=== PATIENT | male | born 1980 | race African-American/Black ===

== ENCOUNTER → 2016-08-25 | Emergency (ER) | payer OTHER ==
[~2016-08-25] MED LIST: METOCLOPRAMIDE HCL INJECTION 10 MG/2 ML VIAL IVPB ONE; METOCLOPRAMIDE HCL INJECTION 10 MG/2 ML VIAL ONE; SODIUM CHLORIDE 1,000 ML IV STA; morphine CARPU-JECT 2 MG/1 ML DISP.SYRIN IVPUSH ONE; morphine CARPU-JECT 4 MG/1 ML DISP.SYRIN ONE
[2016-08-25 11:40] VITALS: BP 128/76; PULSE 86; TEMP 98.2; BMI 24.3
[2016-08-25 12:39] LABS: EOSINOPHIL 1.4 % (0-4.5); MCH 32.3 pg (25.7-33.7); MEAN CELL VOLUME 97.9 fl (80-96); NEUTROPHILS 72.3 % (42.8-82.8); PLATELET COUNT 444 K/MM3 (134-434); RDW 15.2 % (11.9-15.9); WHITE BLOOD COUNT 7.5 K/mm3 (4.0-10.0)
[2016-08-25 13:05] LABS: ALBUMIN 3.9 g/dl (3.4-5.0); ANION GAP 8 (8-16); BILIRUBIN,TOTAL 0.7 mg/dL (0.2-1.0); CALCIUM 9.2 mg/dL (8.5-10.1); CO2 26 mmol/L (21-32); CREATININE 0.8 mg/dL (0.7-1.3); GLUCOSE,RANDOM 95 mg/dL (74-106); SGOT/AST 17 U/L (15-37); SGPT/ALT 60 U/L (12-78)
[2016-08-25 13:06] LABS: ALK PHOS 125 U/L (45-117)
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
[2016-08-25 13:59] LABS: URINE APPEARANCE CLEAR; URINE BILIRUBIN NEGATIVE (NEGATIVE); URINE BLOOD NEGATIVE (NEGATIVE); URINE COLOR YELLOW; URINE GLUCOSE (UA) NEGATIVE (NEGATIVE); URINE KETONE NEGATIVE (NEGATIVE); URINE LEUK ESTERASE NEGATIVE (NEGATIVE); URINE NITRITE NEGATIVE (NEGATIVE); URINE PROTEIN NEGATIVE (NEGATIVE); URINE UROBILINOGEN 4.0 E.U/dl E.U./dl (0.2-1.0)
[2016-08-25 15:13] LABS: URINE MARIJUANA THC POSITIVE ng/ml (CUTOFF=50)
== END | disposition home or self-care (01) ==
LOC: JER 11:17
PROC: 3E033GC Introduction of Other Therapeutic Substance into Peripheral Vein, Percutaneous Approach (ICD-10-PCS; principal; 2016-08-25)
PROC: 3E033NZ Introduction of Analgesics, Hypnotics, Sedatives into Peripheral Vein, Percutaneous Approach (ICD-10-PCS; 2016-08-25)
DX: R11.2 Nausea with vomiting, unspecified (principal); J45.909 Unspecified asthma, uncomplicated; F17.210 Nicotine dependence, cigarettes, uncomplicated; F12.10 Cannabis abuse, uncomplicated
CPT/HCPCS: 36415; 80053; 80307; 81003; 83605; 83690; 83735; 85025; 87040; 87086; 99284-25

== ENCOUNTER 2016-12-06 21:14 | Emergency (ER) | payer OTHER ==
[2016-12-06 21:28] VITALS: BMI 23.6
[2016-12-06] MEDS ORDERED: SODIUM CHLORIDE 0.9% 500 ML INFUS.BAG IV ONE (21:33)
[2016-12-06] MEDS ORDERED: ONDANSETRON 4 MG/2 ML VIAL IVPUSH ONE ×2 (21:33→21:51)
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
[2016-12-06] MEDS ORDERED: ONDANSETRON 4 MG/2 ML VIAL ONE (21:39)
[2016-12-06] MEDS ORDERED: FAMOTIDINE 20 MG/50 ML IVPB 50 ML IVPB ONE ×2 (21:51→21:56)
[2016-12-06] MEDS ORDERED: morphine CARPU-JECT 4 MG/1 ML DISP.SYRIN IVPUSH ONE (21:51)
[2016-12-06] MEDS ORDERED: morphine CARPU-JECT 4 MG/1 ML DISP.SYRIN ONE (21:55)
[2016-12-06 22:31] LABS: BASOPHIL 0.3 % (0-2.0); MCH 29.4 pg (25.7-33.7); MCHC 32.5 g/dl (32.0-35.9); MEAN CELL VOLUME 90.5 fl (80-96); MEAN PLT VOLUME 9.2 fl (7.5-11.1); NEUTROPHILS 86.1 % (42.8-82.8); PLATELET COUNT 229 K/MM3 (134-434); RDW 14.6 % (11.9-15.9); WHITE BLOOD COUNT 9.8 K/mm3 (4.0-10.0)
[2016-12-06 22:43] LABS: INR 1.19 (0.82-1.09); PROTHROMBIN TIME (PATIENT) 13.1 SEC (9.98-11.88)
[2016-12-06 23:00] LABS: ALBUMIN 4.2 g/dl (3.4-5.0); ALK PHOS 74 U/L (45-117); ANION GAP 8 (8-16); BILIRUBIN,TOTAL 0.8 mg/dL (0.2-1.0); CALCIUM 9.1 mg/dL (8.5-10.1); CO2 27 mmol/L (21-32); COCKROFT - GAULT 102.81; GLUCOSE,RANDOM 92 mg/dL (74-106); MAGNESIUM 1.7 mg/dL (1.8-2.4); PHOSPHOROUS 2.9 mg/dL (2.5-4.9); SGOT/AST 18 U/L (15-37); SGPT/ALT 21 U/L (12-78); TOT PROT 7.8 g/dl (6.4-8.2)
[2016-12-07] MEDS ORDERED: ONDANSETRON 4 MG/2 ML VIAL IVPUSH ONE (01:56)
[2016-12-07] MEDS ORDERED: ONDANSETRON 4 MG/2 ML VIAL ONE (02:23)
[2016-12-07 02:39] VITALS: BP 126/87; PULSE 80; TEMP 98.3
== END 2016-12-07 02:29 | disposition home or self-care (01) ==
LOC: JER 21:14
PROC: 3E033NZ Introduction of Analgesics, Hypnotics, Sedatives into Peripheral Vein, Percutaneous Approach (ICD-10-PCS; principal; 2016-12-06)
PROC: 3E033GC Introduction of Other Therapeutic Substance into Peripheral Vein, Percutaneous Approach (ICD-10-PCS; 2016-12-06)
DX: R10.30 Lower abdominal pain, unspecified (principal)
CPT/HCPCS: 36415; 74177-TC; 80053; 83605; 83690; 83735; 84100; 85025; 85610; 86850; 86900; 86901; 96374; 96375; 99283-25

== ENCOUNTER 2016-12-08 13:11 | Emergency (ER) | payer OTHER ==
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
[2016-12-08] MEDS ORDERED: HYDROmorphone HCL CARPU-JECT 2 MG/1 ML DISP.SYRIN IVPUSH ONE (13:29)
[2016-12-08] MEDS ORDERED: SODIUM CHLORIDE 2,000 ML IV STA (13:29)
[2016-12-08] MEDS ORDERED: ONDANSETRON 4 MG/2 ML VIAL IVPUSH ONE (13:29)
[2016-12-08 13:36] VITALS: BMI 22.8
[2016-12-08] MEDS ORDERED: HYDROmorphone HCL CARPU-JECT 2 MG/1 ML DISP.SYRIN ONE (13:40)
[2016-12-08] MEDS ORDERED: ONDANSETRON 4 MG/2 ML VIAL ONE (13:41)
[2016-12-08 14:25] LABS: BASOPHIL 0.4 % (0-2.0); EOSINOPHIL 1.4 % (0-4.5); MCH 29.2 pg (25.7-33.7); MCHC 32.3 g/dl (32.0-35.9); MEAN CELL VOLUME 90.5 fl (80-96); MEAN PLT VOLUME 8.7 fl (7.5-11.1); NEUTROPHILS 75.6 % (42.8-82.8); PLATELET COUNT 209 K/MM3 (134-434); RDW 14.3 % (11.9-15.9)
[2016-12-08 14:36] LABS: INR 1.2 (0.82-1.09); PROTHROMBIN TIME (PATIENT) 13.2 SEC (9.98-11.88)
[2016-12-08 14:53] LABS: ALBUMIN 4.1 g/dl (3.4-5.0); ALK PHOS 63 U/L (45-117); ANION GAP 10 (8-16); BILIRUBIN,TOTAL 0.8 mg/dL (0.2-1.0); CALCIUM 8.6 mg/dL (8.5-10.1); CO2 26 mmol/L (21-32); COCKROFT - GAULT 110.66; CREATININE 0.9 mg/dL (0.7-1.3); GLUCOSE,RANDOM 81 mg/dL (74-106); SGOT/AST 20 U/L (15-37); SGPT/ALT 19 U/L (12-78); TOT PROT 7.2 g/dl (6.4-8.2)
[2016-12-08 15:49] LABS: URINE APPEARANCE CLEAR; URINE BILIRUBIN NEGATIVE (NEGATIVE); URINE BLOOD NEGATIVE (NEGATIVE); URINE COLOR STRAW; URINE GLUCOSE (UA) NEGATIVE (NEGATIVE); URINE KETONE 1+ (NEGATIVE); URINE LEUK ESTERASE NEGATIVE (NEGATIVE); URINE NITRITE NEGATIVE (NEGATIVE); URINE PROTEIN NEGATIVE (NEGATIVE); URINE UROBILINOGEN NEGATIVE E.U./dl (0.2-1.0)
[2016-12-08 15:54] LABS: URINE MARIJUANA THC POSITIVE ng/ml (CUTOFF=50)
[2016-12-08 18:06] VITALS: BP 146/87; PULSE 62; TEMP 98.2
== END 2016-12-08 18:02 | disposition home or self-care (01) ==
LOC: JER 13:11
PROC: 3E033NZ Introduction of Analgesics, Hypnotics, Sedatives into Peripheral Vein, Percutaneous Approach (ICD-10-PCS; principal; 2016-12-08)
PROC: 3E033GC Introduction of Other Therapeutic Substance into Peripheral Vein, Percutaneous Approach (ICD-10-PCS; 2016-12-08)
DX: R10.30 Lower abdominal pain, unspecified (principal); Z87.828 Personal history of other (healed) physical injury and trauma
CPT/HCPCS: 36415; 76705-TC; 80053; 80307; 81003; 83690; 85025; 85610; 99282-25

== ENCOUNTER 2017-04-04 22:43 | Emergency (ER) | payer OTHER ==
[2017-04-04 23:06] VITALS: BP 142/119; PULSE 86; TEMP 98.9; BMI 24.3
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
[2017-04-04] MEDS ORDERED: SODIUM CHLORIDE 1,000 ML IV STA (23:35)
[2017-04-04] MEDS ORDERED: ONDANSETRON 4 MG/2 ML VIAL IVPUSH STA (23:35)
[2017-04-04] MEDS ORDERED: morphine CARPU-JECT 2 MG/1 ML DISP.SYRIN IVPUSH ONE (23:35)
[2017-04-04] MEDS ORDERED: PANTOPRAZOLE SODIUM 40 MG in SODIUM CHLORIDE 100 ML IVPB ONE (23:35)
[2017-04-04] MEDS ORDERED: PANTOPRAZOLE SODIUM 100 ML IVPB ONE (23:42)
[2017-04-04] MEDS ORDERED: morphine CARPU-JECT 4 MG/1 ML DISP.SYRIN ONE (23:42)
[2017-04-04] MEDS ORDERED: ONDANSETRON 4 MG/2 ML VIAL ONE (23:42)
[2017-04-04 23:45] LABS: BASOPHIL 0.4 % (0-2.0); EOSINOPHIL 0.1 % (0-4.5); MCH 30.7 pg (25.7-33.7); MCHC 32.8 g/dl (32.0-35.9); MEAN CELL VOLUME 93.4 fl (80-96); MEAN PLT VOLUME 8.8 fl (7.5-11.1); PLATELET COUNT 211 K/MM3 (134-434); WHITE BLOOD COUNT 8.5 K/mm3 (4.0-10.0)
[2017-04-05 00:13] LABS: ALBUMIN 4.2 g/dl (3.4-5.0); AMYLASE 45 U/L (25-115); ANION GAP 12 (8-16); BILIRUBIN,TOTAL 1.1 mg/dL (0.2-1.0); CALCIUM 9.3 mg/dL (8.5-10.1); CO2 25 mmol/L (21-32); GLUCOSE,RANDOM 96 mg/dL (74-106); MAGNESIUM 1.8 mg/dL (1.8-2.4); SGOT/AST 13 U/L (15-37); SGPT/ALT 18 U/L (12-78); TOT PROT 7.8 g/dl (6.4-8.2)
[2017-04-05 00:14] LABS: ALK PHOS 82 U/L (45-117)
[2017-04-05] MEDS ORDERED: FAMOTIDINE 20 MG/50 ML IVPB 20 MG in PREMIX 50 IVPB ONE (01:56)
[2017-04-05] MEDS ORDERED: FAMOTIDINE 20 MG/50 ML IVPB 50 ML IVPB ONE (01:57)
[2017-04-05 02:06] LABS: URINE APPEARANCE CLEAR; URINE BILIRUBIN NEGATIVE (NEGATIVE); URINE BLOOD 1+ (NEGATIVE); URINE COLOR YELLOW; URINE GLUCOSE (UA) NEGATIVE (NEGATIVE); URINE KETONE 2+ (NEGATIVE); URINE LEUK ESTERASE NEGATIVE (NEGATIVE); URINE NITRITE NEGATIVE (NEGATIVE); URINE UROBILINOGEN NEGATIVE mg/dL (0.2-1.0)
[2017-04-05 02:12] LABS: URINE PROTEIN 1+ (NEGATIVE)
[2017-04-05 02:13] LABS: URINE BACTERIA RARE /hpf (NONE SEEN); URINE HYALINE CAST 3 /lpf; URINE MUCUS MANY; URINE RBC 2 /hpf (0-3); URINE WBC 1 /hpf (3-5)
== END 2017-04-05 02:27 | disposition home or self-care (01) ==
LOC: JER 22:43
PROC: 3E033GC Introduction of Other Therapeutic Substance into Peripheral Vein, Percutaneous Approach (ICD-10-PCS; principal; 2017-04-04)
PROC: 3E0337Z Introduction of Electrolytic and Water Balance Substance into Peripheral Vein, Percutaneous Approach (ICD-10-PCS; 2017-04-04)
DX: K31.84 Gastroparesis (principal); K21.9 Gastro-esophageal reflux disease without esophagitis; R10.9 Unspecified abdominal pain; R11.2 Nausea with vomiting, unspecified
CPT/HCPCS: 36415; 73030-TC-RT; 80053; 81003; 81015; 82150; 83690; 83735; 85025; 99283-25

== ENCOUNTER 2017-10-08 14:40 | Emergency (ER) | payer OTHER ==
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
[2017-10-08] MEDS ORDERED: SODIUM CHLORIDE 1,000 ML IV STA ×2 (14:44→15:55)
[2017-10-08] MEDS ORDERED: ONDANSETRON 4 MG/2 ML VIAL IVPUSH ONE (14:44)
[2017-10-08] MEDS ORDERED: FAMOTIDINE 20 MG/50 ML IVPB 20 MG/50 ML MG IVPB ONE ×2 (14:44→14:48)
[2017-10-08] MEDS ORDERED: ONDANSETRON 4 MG TABLET PO ONE (14:48)
[2017-10-08] MEDS ORDERED: ONDANSETRON 4 MG/2 ML VIAL ONE (14:49)
[2017-10-08] MEDS ORDERED: morphine CARPU-JECT 4 MG/1 ML DISP.SYRIN IVPUSH ONE ×2 (14:58→15:55)
[2017-10-08 15:22] LABS: BASO % 1.4 % (0-2.0); HEMATOCRIT 43.3 % (35.4-49); HEMOGLOBIN 14.8 GM/dl (11.7-16.9); LYMPH % 16.6 % (8-40); MCH 31.9 pg (25.7-33.7); MCHC 34.1 g/dl (32.0-35.9); MEAN CELL VOLUME 93.3 fl (80-96); MEAN PLT VOLUME 8.6 fl (7.5-11.1); MONO % 7.6 % (3.8-10.2); NEUT % 73.4 % (42.8-82.8); PLATELET COUNT 225 K/MM3 (134-434); RBC 4.64 M/mm3 (4.00-5.60); RDW 12.8 % (11.9-15.9); WHITE BLOOD COUNT 7.1 K/mm3 (4.0-10.8)
[2017-10-08 15:33] LABS: ALBUMIN 4.1 g/dl (3.5-5.0); ALK PHOS 45 U/L (32-92); ANION GAP 4 (8-16); BILIRUBIN,TOTAL 0.6 mg/dl (0.2-1.0); BLOOD UREA NITROGEN 10 mg/dl (7-18); CALCIUM 8.7 mg/dl (8.4-10.2); CHLORIDE 103 mmol/L (98-107); CO2 26 mmol/L (22-28); CREATININE 0.9 mg/dl (0.6-1.3); GLUCOSE,RANDOM 94 mg/dl (74-106); POTASSIUM 3.3 mmol/L (3.5-5.1); SGOT/AST 19 U/L (10-42); SGPT/ALT 16 U/L (10-40); SODIUM 133 mmol/L (136-145); TOT PROT 6.5 g/dl (6.4-8.3)
[2017-10-08] MEDS ORDERED: morphine SULFATE 4 MG/ML VIAL ONE (15:54)
[2017-10-08] MEDS ORDERED: METOCLOPRAMIDE HCL INJECTION 10 MG/2 ML VIAL IVPB ONE (15:55)
[2017-10-08 16:02] LABS: PH,URINE 8.5 (4.5-8); URINE APPEARANCE Clear; URINE BILIRUBIN Negative (NEGATIVE); URINE BLOOD Negative (NEGATIVE); URINE GLUCOSE (UA) Negative (NEGATIVE); URINE KETONE 1+ (NEGATIVE); URINE LEUK ESTERASE Negative (NEGATIVE); URINE NITRITE Negative (NEGATIVE); URINE PROTEIN Negative (NEGATIVE); URINE UROBILINOGEN 0.2 (0.2-1.0)
[2017-10-08 16:06] LABS: URINE COLOR YELLOW
[2017-10-08] MEDS ORDERED: KCL 10 MEQ IVPB 10 MEQ/100 ML INFUS.BAG IVPB SCH (16:15)
[2017-10-08 16:50] VITALS: BP 129/79; PULSE 69; TEMP 98.1; BMI 22.1
[2017-10-08 16:57] LABS: LIPASE 99 U/L (73-393)
[2017-10-08 17:15] LABS: COCAINE, UR NEGATIVE ng/ml (CUTOFF=300); METHADONE, UR NEGATIVE ng/ml (CUTOFF=300); OPIATES, URI NEGATIVE ng/ml (CUTOFF=300); PHENCYCLIDINE,URINE NEGATIVE ng/ml (CUTOFF=25); URINE AMPHETAMINES NEGATIVE ng/ml (CUTOFF=500); URINE BARBITURATES NEGATIVE ng/ml (CUTOFF=200); URINE BENZODIAZEPINES NEGATIVE ng/ml (CUTOFF=200)
[2017-10-08] MEDS ORDERED: POTASSIUM CHLORIDE TABS 20 MEQ TABLET.ER (FP) PO ONE (18:10)
== END 2017-10-08 18:28 | disposition home or self-care (01) ==
LOC: FER 14:40
PROC: 3E033GC Introduction of Other Therapeutic Substance into Peripheral Vein, Percutaneous Approach (ICD-10-PCS; principal; 2017-10-08)
PROC: 3E0333Z Introduction of Anti-inflammatory into Peripheral Vein, Percutaneous Approach (ICD-10-PCS; 2017-10-08)
PROC: 3E0337Z Introduction of Electrolytic and Water Balance Substance into Peripheral Vein, Percutaneous Approach (ICD-10-PCS; 2017-10-08)
DX: K31.84 Gastroparesis (principal); R11.2 Nausea with vomiting, unspecified
CPT/HCPCS: 36415; 80053; 80307; 81003; 83690; 85025; 87086; 96361; 96365; 96375; 99283-25

== ENCOUNTER → 2017-12-14 | Emergency (ER) | payer OTHER ==
[2017-12-14 19:53] VITALS: BP 143/104; PULSE 79; TEMP 98.3; BMI 22.1
== END | disposition left against medical advice (07) ==
LOC: FER 19:48
DX: Z53.21 Procedure and treatment not carried out due to patient leaving prior to being seen by health care provider (principal)
CPT/HCPCS: 99281-25

== ENCOUNTER 2018-04-16 11:40 | Observation (INO) | payer OTHER ==
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
[2018-04-16] MEDS ORDERED: ONDANSETRON *ODT* 4 MG TABLET SL ONE (12:00)
[2018-04-16] MEDS ORDERED: SODIUM CHLORIDE 1,000 ML IV STA (12:00)
[2018-04-16] MEDS ORDERED: ONDANSETRON 4 MG/2 ML VIAL IVPUSH ONE ×2 (12:06→15:17)
[2018-04-16] MEDS ORDERED: FAMOTIDINE 20 MG/50 ML IVPB 20 MG/50 ML MG IVPB ONE ×2 (12:07→12:15)
[2018-04-16] MEDS ORDERED: MAG HYDROX/AL HYDROX/SIMETH 30 ML UNIT-DOSE CUP PO ONE (12:07)
[2018-04-16] MEDS ORDERED: MAG HYDROX/AL HYDROX/SIMETH 30 ML UNIT-DOSE CUP ONE (12:15)
[2018-04-16] MEDS ORDERED: ONDANSETRON 4 MG/2 ML VIAL ONE (12:15)
[2018-04-16 12:29] LABS: BASO % 0.7 % (0-2.0); HEMATOCRIT 46.4 % (35.4-49); HEMOGLOBIN 15.5 GM/dL (11.7-16.9); LYMPH % 14.3 % (8-40); MCH 31.9 pg (25.7-33.7); MCHC 33.3 g/dl (32.0-35.9); MEAN CELL VOLUME 95.7 fl (80-96); MEAN PLT VOLUME 9.1 fl (7.5-11.1); MONO % 11.5 % (3.8-10.2); NEUT % 71.5 % (42.8-82.8); PLATELET COUNT 227 K/MM3 (134-434); RBC 4.85 M/mm3 (4.00-5.60); RDW 13.6 % (11.9-15.9); WHITE BLOOD COUNT 8.4 K/mm3 (4.0-10.0)
[2018-04-16] MEDS ORDERED: ACETAMINOPHEN 1000 MG/100 ML VIAL (NON FORMULARY) IVPB ONE (12:46)
[2018-04-16 12:52] LABS: ALBUMIN 4.2 g/dl (3.4-5.0); ALK PHOS 63 U/L (45-117); ANION GAP 9 MMOL/L (8-16); BLOOD UREA NITROGEN 12 mg/dL (7-18); CALCIUM 8.9 mg/dL (8.5-10.1); CHLORIDE 106 mmol/L (98-107); CO2 26 mmol/L (21-32); GLUCOSE,RANDOM 82 mg/dL (74-106); LIPASE 75 U/L (73-393); SGPT/ALT 25 U/L (12-78); SODIUM 141 mmol/L (136-145); TOT PROT 7.6 g/dl (6.4-8.2)
[2018-04-16 12:55] LABS: POTASSIUM 4.2 mmol/L (3.5-5.1); SGOT/AST 31 U/L (15-37)
[2018-04-16] MEDS ORDERED: ACETAMINOPHEN INJECTION 100 ML IVPB ONE (13:12)
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
[2018-04-16] MEDS ORDERED: METOCLOPRAMIDE HCL INJECTION 10 MG/2 ML VIAL IVPUSH ONE (15:17)
[2018-04-16] MEDS ORDERED: PANTOPRAZOLE SODIUM 40 MG VIAL IVPUSH ONE (15:18)
[2018-04-16] MEDS ORDERED: ONDANSETRON 4 MG/2 ML VIAL IVPB PRN (15:59)
[2018-04-16] MEDS ORDERED: PANTOPRAZOLE SODIUM 40 MG/100 ML BAG IVPB ONE (16:03)
[2018-04-16] MEDS ORDERED: METOCLOPRAMIDE HCL INJECTION 10 MG/2 ML VIAL ONE (16:03)
[2018-04-16] MEDS ORDERED: SODIUM CHLORIDE 1,000 ML IV SCH (16:15)
[2018-04-16] MEDS ORDERED: ONDANSETRON 4 MG/2 ML VIAL IVPUSH PRN (16:46)
[2018-04-16] MEDS ORDERED: morphine SULFATE 4 MG/ML VIAL IVPUSH PRN (16:46)
[2018-04-16] MEDS ORDERED: ACETAMINOPHEN 1000 MG/100 ML VIAL (NON FORMULARY) IVPB PRN (16:46)
[2018-04-16] MEDS ORDERED: diazePAM CARPU-JECT 10 MG/2 ML DISP.SYRIN IVPUSH ONE (16:54)
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
[2018-04-16] MEDS ORDERED: METOCLOPRAMIDE HCL INJECTION 10 MG/2 ML VIAL IVPUSH SCH (17:00)
[2018-04-16] MEDS ORDERED: DEXTROSE 5%-NORMAL SALINE 1,000 ML IV SCH (17:00)
[2018-04-16] MEDS ORDERED: LORazepam 2 MG/ML SDV VIAL IVPUSH ONE (18:30)
[2018-04-16 18:48] VITALS: BP 146/93; PULSE 71; TEMP 98.8; BMI 19.6
[2018-04-16] MEDS ORDERED: PANTOPRAZOLE SODIUM 40 MG VIAL IVPUSH SCH (22:00)
--- NOTE | 2018-04-17 05:42 | DS ---
Physical Examination Vital Signs: Vital Signs Temperature 98.8 F 04/16/18 18:07 Pulse Rate 71 04/16/18 18:07 Respiratory Rate 20 04/16/18 18:07 Blood Pressure 146/93 04/16/18 18:07 O2 Sat by Pulse Oximetry (%) 100 04/16/18 18:07 Findings/Remarks: SIGNED AMA Labs: CBC, BMP 04/16/18 12:15 04/16/18 12:15 Discharge Summary Reason For Visit: NAUSEA; VOMITING; INTRACTABLE ABDOMINAL PAIN Condition: Unchanged/Unknown - Instructions Referrals: Elan Dewey [Primary Care Provider] - Disposition: AGAINST MEDICAL ADVICE - Home Medications Comprehensive Discharge Medication List: Ambulatory Orders NK [No Known Home Medication] 04/16/18
== END 2018-04-16 21:18 | disposition left against medical advice (07) ==
LOC: JER 11:40 → JERBED 15:25 → J6S 17:30
PROVIDERS: ADMIT Family Medicine; ATTEND Family Medicine
PROC: 3E033NZ Introduction of Analgesics, Hypnotics, Sedatives into Peripheral Vein, Percutaneous Approach (ICD-10-PCS; principal; 2018-04-16)
PROC: 3E033GC Introduction of Other Therapeutic Substance into Peripheral Vein, Percutaneous Approach (ICD-10-PCS; 2018-04-16)
PROC: 3E0337Z Introduction of Electrolytic and Water Balance Substance into Peripheral Vein, Percutaneous Approach (ICD-10-PCS; 2018-04-16)
DX: R10.13 Epigastric pain (principal); R10.84 Generalized abdominal pain; R11.2 Nausea with vomiting, unspecified; K21.9 Gastro-esophageal reflux disease without esophagitis; K31.84 Gastroparesis
CPT/HCPCS: 36415; 70450-TC; 73130-TC-RT-FY; 74177-TC; 80053; 83605; 83690; 85025; 85651; 86140; 96365; 96375; 96376; 99283-25; G0378; J0131; J7030

== ENCOUNTER 2018-05-23 14:44 | Emergency (ER) | payer OTHER ==
[2018-05-23] MEDS ORDERED: SODIUM CHLORIDE 1,000 ML IV STA (14:54)
[2018-05-23 14:55] VITALS: BP 146/85; PULSE 63; TEMP 98.3; BMI 20.7
[2018-05-23] MEDS ORDERED: PANTOPRAZOLE SODIUM 40 MG VIAL IVPUSH ONE (14:55)
[2018-05-23] MEDS ORDERED: ONDANSETRON 4 MG/2 ML VIAL IVPB ONE ×2 (14:55→16:50)
[2018-05-23] MEDS ORDERED: HYOSCYAMINE SULFATE 0.125 MG *ODT PO ONE (14:56)
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
[2018-05-23] MEDS ORDERED: ONDANSETRON 4 MG/2 ML VIAL ONE ×2 (15:26→16:34)
[2018-05-23] MEDS ORDERED: HYOSCYAMINE SULFATE 0.125 MG *ODT ONE (15:26)
[2018-05-23] MEDS ORDERED: PANTOPRAZOLE SODIUM 40 MG VIAL ONE (15:26)
[2018-05-23 15:41] LABS: PH,URINE 8.5 (4.5-8); URINE APPEARANCE Clear; URINE BILIRUBIN Negative (NEGATIVE); URINE COLOR Amber; URINE GLUCOSE (UA) Negative (NEGATIVE); URINE KETONE Negative (NEGATIVE); URINE LEUK ESTERASE Negative (NEGATIVE); URINE NITRITE Negative (NEGATIVE); URINE PROTEIN Negative (NEGATIVE); URINE UROBILINOGEN 0.2 (0.2-1.0)
[2018-05-23 15:46] LABS: BASO % 1.8 % (0-2.0); EOS % 0.5 % (0-4.5); LYMPH % 8.2 % (8-40); MCH 31.6 pg (25.7-33.7); MCHC 32.7 g/dl (32.0-35.9); MEAN CELL VOLUME 96.7 fl (80-96); MEAN PLT VOLUME 9.1 fl (7.5-11.1); NEUT % 78.5 % (42.8-82.8); PLATELET COUNT 250 K/MM3 (134-434); RBC 4.75 M/mm3 (4.00-5.60); WHITE BLOOD COUNT 7.7 K/mm3 (4.0-10.8)
[2018-05-23 15:54] LABS: ALBUMIN 4.5 g/dl (3.5-5.0); ALK PHOS 57 U/L (32-92); ANION GAP 6 MMOL/L (8-16); BILIRUBIN,TOTAL 0.9 mg/dl (0.2-1.0); BLOOD UREA NITROGEN 10 mg/dl (7-18); CHLORIDE 101 mmol/L (98-107); CO2 26 mmol/L (22-28); CREATININE 0.9 mg/dl (0.6-1.3); GLUCOSE,RANDOM 97 mg/dl (74-106); POTASSIUM 3.9 mmol/L (3.5-5.1); SGOT/AST 25 U/L (10-42); SGPT/ALT 21 U/L (10-40); SODIUM 133 mmol/L (136-145); TOT PROT 7.7 g/dl (6.4-8.3)
[2018-05-23] MEDS ORDERED: ACETAMINOPHEN INJECTION 100 ML IVPB ONE (16:34)
[2018-05-23] MEDS ORDERED: ACETAMINOPHEN 1000 MG/100 ML VIAL (NON FORMULARY) IVPB ONE (16:50)
[2018-05-23] MEDS ORDERED: LORazepam 2 MG/ML SDV VIAL ONE (18:01)
[2018-05-23 18:05] LABS: LIPASE 214 U/L (73-393)
[2018-05-23 19:18] LABS: COCAINE, UR NEGATIVE ng/ml (CUTOFF=300); METHADONE, UR NEGATIVE ng/ml (CUTOFF=300); OPIATES, URI NEGATIVE ng/ml (CUTOFF=300); PHENCYCLIDINE,URINE NEGATIVE ng/ml (CUTOFF=25); URINE AMPHETAMINES NEGATIVE ng/ml (CUTOFF=500); URINE BARBITURATES NEGATIVE ng/ml (CUTOFF=200); URINE BENZODIAZEPINES NEGATIVE ng/ml (CUTOFF=200)
== END 2018-05-23 18:57 | disposition home or self-care (01) ==
LOC: FER 14:44
PROC: 3E033NZ Introduction of Analgesics, Hypnotics, Sedatives into Peripheral Vein, Percutaneous Approach (ICD-10-PCS; principal; 2018-05-23)
PROC: 3E033GC Introduction of Other Therapeutic Substance into Peripheral Vein, Percutaneous Approach (ICD-10-PCS; 2018-05-23)
PROC: 3E0337Z Introduction of Electrolytic and Water Balance Substance into Peripheral Vein, Percutaneous Approach (ICD-10-PCS; 2018-05-23)
DX: K29.00 Acute gastritis without bleeding (principal); K21.9 Gastro-esophageal reflux disease without esophagitis; J45.909 Unspecified asthma, uncomplicated; F17.210 Nicotine dependence, cigarettes, uncomplicated
CPT/HCPCS: 36415; 80053; 80307; 81003; 83690; 85025; 96361; 96374; 96375; 96376; 99283-25; J0131; J7030

== ENCOUNTER 2018-09-06 17:07 | Emergency (ER) | payer SELFPAY ==
[2018-09-06] MEDS ORDERED: ONDANSETRON 4 MG/2 ML VIAL IVPUSH ONE (17:11)
[2018-09-06] MEDS ORDERED: SODIUM CHLORIDE 1,000 ML IV STA (17:11)
--- NOTE | 2018-09-06 17:11 | PDOC ---
Rapid Medical Evaluation Time Seen by Provider: 09/06/18 17:10 Medical Evaluation: Allergies Allergy/AdvReac Type Severity Reaction Status Date / Time No Known Allergies Allergy Verified 05/23/18 13:13 09/06/18 17:12 I have performed a brief in-person evaluation of this patient. The patient presents with a chief complaint of: Vomiting, diarrhea, abdominal pain. Girlfriend reports 2 minute period of unresponsiveness in the car just prior to arrival. Pertinent physical exam findings: Actively vomiting. Diffuse abdominal tenderness to gentle palpation. Alert, oriented. I have ordered the following: Labs, Zofran, fluids. The patient will proceed to the ED for further evaluation. Discharge Disposition - Diagnosis Vomiting and diarrhea Abdominal pain Qualifiers: Abdominal location: generalized Qualified Code(s): R10.84 - Generalized abdominal pain - Referrals - Patient Instructions - Post Discharge Activity
[2018-09-06] MEDS ORDERED: FAMOTIDINE 20 MG/50 ML IVPB 20 MG/50 ML MG IVPB ONE ×2 (17:14→17:30)
[2018-09-06 17:15] VITALS: BP 134/93; PULSE 86; TEMP 98.4; BMI 22.1
[2018-09-06] MEDS ORDERED: ONDANSETRON 4 MG/2 ML VIAL ONE (17:29)
--- NOTE | 2018-09-06 17:32 | PDOC ---
Attending Attestation - HPI HPI: 09/06/18 19:31 Patient is a 38 year old male with a significant past medical history of who presents to the ED with complaints of nausea and vomiting that began this morning. Patient reports waking up this morning with increased nausea and vomiting that has shown no signs of subsiding all day. He reports experiencing over 100 episode of vomiting since this morning, prompting him to come into the ED for further evaluation. Patient reports experiencing associated symptoms of diffuse abdominal pain. Denies chest pain, Sob. Denies nausea, vomiting. Denies fevers, chills. Denies dysuria, hematuria. Denies constipation, diarrhea. Denies trauma to affected area, loss of consciousness. Denies contact with sick individuals, out of state travelling. Denies any other symptoms. Allergies: None Social history: Current smoker. Current alcohol user. No illicit drugs. Surgical: None PMD: Dr. Martino - Physicial Exam PE: 09/06/18 19:31 GENERAL: +sleeping but arousable. alert, and fully oriented, in no acute distress HEAD: No signs of trauma EYES: PERRLA, EOMI, sclera anicteric, conjunctiva clear ENT: Auricles normal inspection, hearing grossly normal, nares patent, oropharynx clear without exudates. Moist mucosa NECK: Normal ROM, supple, no lymphadenopathy, JVD, or masses LUNGS: Breath sounds equal, clear to auscultation bilaterally. No wheezes, and no crackles HEART: Regular rate and rhythm, normal S1 and S2, no murmurs, rubs or gallops ABDOMEN:+Not actively vomiting. Soft, nontender, normoactive bowel sounds. No guarding, no rebound. No masses EXTREMITIES: Normal range of motion, no edema. No clubbing or cyanosis. No cords, erythema, or tenderness NEUROLOGICAL: Cranial nerves II through XII grossly intact. Normal speech, normal gait SKIN: Warm, Dry, normal turgor, no rashes or lesions noted. <Mark Diego - Last Filed: 09/06/18 19:31> - Resident Resident Name: Helen Seth - ED Attending Attestation I have performed the following: I have examined & evaluated the patient, The case was reviewed & discussed with the resident, I agree w/resident's findings & plan, Exceptions are as noted - Medical Decision Making 09/06/18 17:31 I, Dr. Shelia Vuong, DO, attest that this document has been prepared under my direction and personally reviewed by me in its entirety. I further attest, that it accurately reflects all work, treatment, procedures and medical decision -making performed by me. 09/06/18 18:13 a/p: 38yo male with hx of GERD and cyclic vomiting with n/v today -multiple episodes of nb vomiting today -some bilious vomiting -girlfriends admits to diarrhea, but patient denies c/o diffuse abd pain -states similar to prior episodes of cyclic vomiting -also noncompliant with omeprazole -will send labs, ivf hydration, nausea and vomiting control -will monitor and reassess 09/06/18 19:36 pt resting comfortably no further vomiting since ativan dosing labs reviewed negative lipase no elevated wbc will continue to monitor when awake, will po challenge 09/06/18 21:05 pt tolerated PO no further vomiting stable for dc to home and restart his meds <Shelia Vuong - Last Filed: 09/06/18 21:05>
[2018-09-06 17:44] LABS: BASO % 0.6 % (0-2.0); EOS % 0.4 % (0-4.5); HEMATOCRIT 44.5 % (35.4-49); HEMOGLOBIN 15.2 GM/dL (11.7-16.9); MCH 32.6 pg (25.7-33.7); MCHC 34.1 g/dl (32.0-35.9); MEAN CELL VOLUME 95.4 fl (80-96); MEAN PLT VOLUME 8.6 fl (7.5-11.1); MONO % 5.5 % (3.8-10.2); NEUT % 80.5 % (42.8-82.8); PLATELET COUNT 246 K/MM3 (134-434); RBC 4.66 M/mm3 (4.00-5.60); RDW 13.9 % (11.9-15.9); WHITE BLOOD COUNT 6.9 K/mm3 (4.0-10.0)
[2018-09-06] MEDS ORDERED: METOCLOPRAMIDE HCL INJECTION 10 MG/2 ML VIAL IVPUSH ONE (17:57)
[2018-09-06] MEDS ORDERED: PANTOPRAZOLE SODIUM 40 MG VIAL IVPUSH ONE (18:00)
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
[2018-09-06] MEDS ORDERED: PANTOPRAZOLE SODIUM 40 MG VIAL ONE (18:29)
[2018-09-06] MEDS ORDERED: METOCLOPRAMIDE HCL INJECTION 10 MG/2 ML VIAL ONE (18:29)
[2018-09-06] MEDS ORDERED: LORazepam 2 MG/ML SDV VIAL ONE (18:29)
[2018-09-06 19:31] LABS: ALBUMIN 3.9 g/dl (3.4-5.0); ALK PHOS 61 U/L (45-117); AMYLASE 65 U/L (25-115); ANION GAP 8 MMOL/L (8-16); BILIRUBIN,TOTAL 0.6 mg/dL (0.2-1); BLOOD UREA NITROGEN 11 mg/dL (7-18); CALCIUM 7.9 mg/dL (8.5-10.1); CHLORIDE 109 mmol/L (98-107); CO2 23 mmol/L (21-32); CREATININE 0.9 mg/dL (0.55-1.3); GLUCOSE,RANDOM 84 mg/dL (74-106); LIPASE 159 U/L (73-393); POTASSIUM 4.5 mmol/L (3.5-5.1); SGOT/AST 18 U/L (15-37); SGPT/ALT 21 U/L (13-61); SODIUM 139 mmol/L (136-145)
== END 2018-09-06 21:08 | disposition home or self-care (01) ==
LOC: JER 17:07
PROC: 3E033GC Introduction of Other Therapeutic Substance into Peripheral Vein, Percutaneous Approach (ICD-10-PCS; principal; 2018-09-06)
PROC: 3E033GC Introduction of Other Therapeutic Substance into Peripheral Vein, Percutaneous Approach (ICD-10-PCS; 2018-09-06)
PROC: 3E033GC Introduction of Other Therapeutic Substance into Peripheral Vein, Percutaneous Approach (ICD-10-PCS; 2018-09-06)
PROC: 3E033NZ Introduction of Analgesics, Hypnotics, Sedatives into Peripheral Vein, Percutaneous Approach (ICD-10-PCS; 2018-09-06)
DX: R10.84 Generalized abdominal pain (principal); R11.2 Nausea with vomiting, unspecified; K31.84 Gastroparesis; Z87.19 Personal history of other diseases of the digestive system
CPT/HCPCS: 36415; 80053; 80307; 82150; 83690; 85025; 99283-25; J7030

== ENCOUNTER 2018-12-06 13:20 | Emergency (ER) | payer OTHER ==
[2018-12-06 13:29] VITALS: BMI 23.9
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
[2018-12-06] MEDS ORDERED: METOCLOPRAMIDE HCL 5 MG/5 ML UNIT DOSE CUP PO ONE (13:53)
[2018-12-06] MEDS ORDERED: MAG HYDROX/AL HYDROX/SIMETH 30 ML UNIT-DOSE CUP PO ONE (13:53)
[2018-12-06] MEDS ORDERED: FAMOTIDINE 20 MG/50 ML IVPB 20 MG/50 ML MG IVPB ONE ×2 (13:53→14:08)
[2018-12-06] MEDS ORDERED: SODIUM CHLORIDE 0.9% 500 ML INFUS.BAG IV ONE (13:53)
[2018-12-06] MEDS ORDERED: ACETAMINOPHEN 1000 MG/100 ML VIAL (NON FORMULARY) IVPB ONE (13:53)
[2018-12-06] MEDS ORDERED: ONDANSETRON 4 MG/2 ML VIAL IVPUSH ONE (14:02)
[2018-12-06] MEDS ORDERED: METOCLOPRAMIDE HCL INJECTION 10 MG/2 ML VIAL IVPUSH ONE (14:02)
[2018-12-06] MEDS ORDERED: morphine CARPU-JECT 4 MG/1 ML DISP.SYRIN IVPUSH ONE (14:03)
[2018-12-06] MEDS ORDERED: ACETAMINOPHEN INJECTION 100 ML IVPB ONE (14:07)
[2018-12-06] MEDS ORDERED: morphine SULFATE 4 MG/ML VIAL ONE (14:07)
[2018-12-06] MEDS ORDERED: ONDANSETRON 4 MG/2 ML VIAL ONE (14:08)
[2018-12-06] MEDS ORDERED: MAG HYDROX/AL HYDROX/SIMETH 30 ML UNIT-DOSE CUP ONE (14:08)
[2018-12-06 14:43] LABS: BASO % 0.6 % (0-2.0); EOS % 1.4 % (0-4.5); HEMATOCRIT 47.4 % (35.4-49); HEMOGLOBIN 16.1 GM/dL (11.7-16.9); LYMPH % 11.7 % (8-40); MCH 33.1 pg (25.7-33.7); MEAN CELL VOLUME 97.3 fl (80-96); MEAN PLT VOLUME 8.7 fl (7.5-11.1); NEUT % 74.3 % (42.8-82.8); PLATELET COUNT 215 K/MM3 (134-434); RBC 4.87 M/mm3 (4.00-5.60); RDW 13.6 % (11.9-15.9); WHITE BLOOD COUNT 6.7 K/mm3 (4.0-10.0)
[2018-12-06 14:51] LABS: INR 1.12 (0.83-1.09); PROTHROMBIN TIME (PATIENT) 13.2 SEC (9.7-13.0)
[2018-12-06 15:09] LABS: ALBUMIN 4.3 g/dl (3.4-5.0); ALK PHOS 67 U/L (45-117); AMYLASE 52 U/L (25-115); ANION GAP 6 MMOL/L (8-16); BILIRUBIN,TOTAL 0.9 mg/dL (0.2-1); BLOOD UREA NITROGEN 13 mg/dL (7-18); CALCIUM 9.5 mg/dL (8.5-10.1); CHLORIDE 106 mmol/L (98-107); CO2 28 mmol/L (21-32); GLUCOSE,RANDOM 85 mg/dL (74-106); LIPASE 115 U/L (73-393); POTASSIUM 3.9 mmol/L (3.5-5.1); SGOT/AST 18 U/L (15-37); SGPT/ALT 24 U/L (13-61); SODIUM 140 mmol/L (136-145); TOT PROT 7.6 g/dl (6.4-8.2)
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
[2018-12-06 17:35] VITALS: BP 122/67; PULSE 72; TEMP 97.8
== END 2018-12-06 17:35 | disposition home or self-care (01) ==
LOC: JER 13:20
PROC: 3E033GC Introduction of Other Therapeutic Substance into Peripheral Vein, Percutaneous Approach (ICD-10-PCS; principal; 2018-12-06)
PROC: 3E033GC Introduction of Other Therapeutic Substance into Peripheral Vein, Percutaneous Approach (ICD-10-PCS; 2018-12-06)
PROC: 3E033NZ Introduction of Analgesics, Hypnotics, Sedatives into Peripheral Vein, Percutaneous Approach (ICD-10-PCS; 2018-12-06)
DX: R10.13 Epigastric pain (principal); R11.2 Nausea with vomiting, unspecified; K21.9 Gastro-esophageal reflux disease without esophagitis; K57.90 Diverticulosis of intestine, part unspecified, without perforation or abscess without bleeding
CPT/HCPCS: 36415; 74177-TC; 80053; 82150; 83690; 85025; 85610; 99282-25; J0131

== ENCOUNTER 2019-03-25 18:51 | Emergency (ER) | payer OTHER ==
[2019-03-25] MEDS ORDERED: SODIUM CHLORIDE 1,000 ML IV STA (18:57)
[2019-03-25] MEDS ORDERED: PANTOPRAZOLE SODIUM 40 MG VIAL IVPUSH ONE (18:57)
[2019-03-25] MEDS ORDERED: ONDANSETRON 4 MG/2 ML VIAL IVPUSH ONE ×2 (18:57→21:20)
--- NOTE | 2019-03-25 18:57 | PDOC ---
Rapid Medical Evaluation Medical Evaluation: Allergies Allergy/AdvReac Type Severity Reaction Status Date / Time No Known Allergies Allergy Verified 05/23/18 13:13 I have performed a brief in-person evaluation of this patient. The patient presents with a chief complaint of: hx of gastritis, c/o dizziness, generalized body pain, abdominal burning; +drinks alcohol; last drink yesterday Pertinent physical exam findings: In moderate distress due to pain; unable to sit still I have ordered the following: Labs, meds, IVF The patient will proceed to the ED for further evaluation. 03/25/19 18:55
[2019-03-25 19:02] VITALS: BP 142/100; PULSE 122; TEMP 98.1; BMI 24.3
[2019-03-25] MEDS ORDERED: ACETAMINOPHEN 1000 MG/100 ML VIAL (NON FORMULARY) IVPB ONE (19:37)
[2019-03-25] MEDS ORDERED: FOLIC ACID INJECTION - 1 MG, THIAMINE HCL 100 MG, MULTIVIT INJECTION ADULT 10 ML in SOD... IVPB ONE (19:38)
[2019-03-25] MEDS ORDERED: MAG HYDROX/AL HYDROX/SIMETH 30 ML UNIT-DOSE CUP PO ONE (19:38)
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
[2019-03-25] MEDS ORDERED: ACETAMINOPHEN INJECTION 100 ML IVPB ONE (20:25)
[2019-03-25] MEDS ORDERED: PANTOPRAZOLE SODIUM 40 MG/100 ML BAG IVPB ONE (20:25)
[2019-03-25] MEDS ORDERED: ONDANSETRON 4 MG/2 ML VIAL ONE ×2 (20:25→21:22)
[2019-03-25 20:29] LABS: BASO % 0.6 % (0-2.0); EOS % 0.4 % (0-4.5); HEMATOCRIT 47.5 % (35.4-49); HEMOGLOBIN 15.7 GM/dL (11.7-16.9); LYMPH % 13.6 % (8-40); MCH 32.5 pg (25.7-33.7); MEAN CELL VOLUME 98.5 fl (80-96); MEAN PLT VOLUME 9.3 fl (7.5-11.1); MONO % 7.6 % (3.8-10.2); NEUT % 77.8 % (42.8-82.8); PLATELET COUNT 185 K/MM3 (134-434); RBC 4.82 M/mm3 (4.00-5.60); RDW 13.6 % (11.9-15.9); WHITE BLOOD COUNT 4.5 K/mm3 (4.0-10.0)
--- NOTE | 2019-03-25 20:42 | PDOC ---
Documentation entered by Inocente nEcinas SCRIBE, acting as scribe for Effie Hart MD. Effie Hart MD: This documentation has been prepared by the Huang mix Elijah, SCRIBE, under my direction and personally reviewed by me in its entirety. I confirm that the documentation accurately reflects all work, treatment, procedures, and medical decision making performed by me. Attending Attestation - Resident Resident Name: ArriagaMichaelventura - ED Attending Attestation I have performed the following: I have examined & evaluated the patient, The case was reviewed & discussed with the resident, I agree w/resident's findings & plan - HPI HPI: 03/25/19 20:25 Patient is a 39 year old male with a significant past medical history of GERD and alcoholic gastritis who presents to the ED with abdominal pain, nausea and vomiting beginning x13 hours prior. Patient reports that he has had x10 episodes of Non-Bloody and bilious vomiting and unable to tolerate PO for the last 24 hours. Patient notes that he usually drinks once in a while but has started to drink daily for the last week secondary to stress at work. Allergies: NKA PCP: Dr. Dewey - Physicial Exam PE: 03/25/19 20:30 Agree with Resident's exam - Medical Decision Making 03/25/19 20:34 thin 39 yo male with PMH etoh abuse, gastritis,GERD he has been drinking etoh heavily lately and today started having abdominal pain and then started having nonbloody,bilious vomiting at 9am and has had 10 episodes so far and has not been able to drink fluids or eat today +epigastric pain plan IVF,zofran,cbc,lipase, comp and reassess diff diag includes etoh gastritis/pancreatitis/ cholecystitis 03/25/19 21:11 Reviewing labs: unremarkable labs 03/25/19 22:48 pt sleeping ,receiving "Banana bag fluids" 03/25/19 23:59 pt has been sleeping while receiving IVF,no further vomiting RX zofran SL sent to his pharmacy d/c home
[2019-03-25 20:55] LABS: BLOOD UREA NITROGEN 7.9 mg/dL (7-18); CALCIUM 9.1 mg/dL (8.5-10.1); CREATININE 1.1 mg/dL (0.55-1.3); POTASSIUM 4.2 mmol/L (3.5-5.1); TOT PROT 7.2 g/dl (6.4-8.2)
[2019-03-25] MEDS ORDERED: MAG HYDROX/AL HYDROX/SIMETH 30 ML UNIT-DOSE CUP ONE (21:22)
[2019-03-25] MEDS ORDERED: METOCLOPRAMIDE HCL INJECTION 10 MG/2 ML VIAL IVPB ONE (21:38)
[2019-03-25] MEDS ORDERED: METOCLOPRAMIDE HCL INJECTION 10 MG/2 ML VIAL ONE (22:17)
== END 2019-03-26 01:03 | disposition home or self-care (01) ==
LOC: JER 18:51
PROC: 3E0337Z Introduction of Electrolytic and Water Balance Substance into Peripheral Vein, Percutaneous Approach (ICD-10-PCS; principal; 2019-03-25)
PROC: 3E033GC Introduction of Other Therapeutic Substance into Peripheral Vein, Percutaneous Approach (ICD-10-PCS; 2019-03-25)
PROC: 3E033GC Introduction of Other Therapeutic Substance into Peripheral Vein, Percutaneous Approach (ICD-10-PCS; 2019-03-25)
PROC: 3E033NZ Introduction of Analgesics, Hypnotics, Sedatives into Peripheral Vein, Percutaneous Approach (ICD-10-PCS; 2019-03-25)
PROC: 3E033GC Introduction of Other Therapeutic Substance into Peripheral Vein, Percutaneous Approach (ICD-10-PCS; 2019-03-25)
PROC: 3E033GC Introduction of Other Therapeutic Substance into Peripheral Vein, Percutaneous Approach (ICD-10-PCS; 2019-03-25)
DX: R10.9 Unspecified abdominal pain (principal); R11.2 Nausea with vomiting, unspecified; F10.10 Alcohol abuse, uncomplicated
CPT/HCPCS: 36415; 80053; 83690; 85025; 96361; 96365; 96366; 96375; 99283-25; J0131; J7030

== ENCOUNTER 2020-02-14 16:33 | Emergency (ER) | payer OTHER ==
[2020-02-14] MEDS ORDERED: SODIUM CHLORIDE 0.9% 500 ML INFUS.BAG IV ONE (16:50)
[2020-02-14] MEDS ORDERED: ACETAMINOPHEN 1000 MG/100 ML VIAL (NON FORMULARY) IVPB ONE (16:50)
[2020-02-14] MEDS ORDERED: FAMOTIDINE 20 MG/50 ML IVPB 20 MG/50 ML MG IVPB ONE ×2 (16:50→17:00)
[2020-02-14] MEDS ORDERED: ONDANSETRON 4 MG/2 ML VIAL IVPUSH ONE (16:50)
[2020-02-14] MEDS ORDERED: MAG HYDROX/AL HYDROX/SIMETH -MYLANTA- ORAL SUSPENSION PO ONE (16:51)
[2020-02-14] MEDS ORDERED: METOCLOPRAMIDE HCL INJECTION 10 MG/2 ML VIAL IVPB ONE (16:55)
[2020-02-14] MEDS ORDERED: MAG HYDROX/AL HYDROX/SIMETH 30 ML UNIT-DOSE CUP ONE (16:59)
[2020-02-14] MEDS ORDERED: ACETAMINOPHEN INJECTION 100 ML IVPB ONE (16:59)
[2020-02-14] MEDS ORDERED: METOCLOPRAMIDE HCL INJECTION 10 MG/2 ML VIAL ONE (16:59)
[2020-02-14 17:26] VITALS: BP 153/90; PULSE 89; TEMP 98.2; BMI 25.1
[2020-02-14 17:57] LABS: BASO % 0.5 % (0-2.0); HEMOGLOBIN 16.3 GM/dL (11.7-16.9); LYMPH % 28.4 % (8-40); MCH 33.2 pg (25.7-33.7); MCHC 33.3 g/dl (32.0-35.9); MEAN CELL VOLUME 99.6 fl (80-96); MEAN PLT VOLUME 9.4 fl (7.5-11.1); MONO % 7.8 % (3.8-10.2); NEUT % 62.3 % (42.8-82.8); PLATELET COUNT 202 K/MM3 (134-434); RBC 4.91 M/mm3 (4.00-5.60); RDW 13.3 % (11.9-15.9); WHITE BLOOD COUNT 5.6 K/mm3 (4.0-10.0)
[2020-02-14 18:11] LABS: INR 1.01 (0.83-1.09); PROTHROMBIN TIME (PATIENT) 11.9 SEC (9.7-13.0)
[2020-02-14 18:14] LABS: ACTIVATED PTT 34.5 SECONDS (25.2-36.5)
[2020-02-14 18:34] LABS: ALBUMIN 4.4 g/dl (3.4-5.0); ALK PHOS 67 U/L (45-117); ANION GAP 10 MMOL/L (8-16); BILIRUBIN,TOTAL 0.6 mg/dL (0.2-1); BLOOD UREA NITROGEN 13.4 mg/dL (7-18); CALCIUM 9.4 mg/dL (8.5-10.1); CHLORIDE 105 mmol/L (98-107); CO2 23 mmol/L (21-32); CREATININE 0.9 mg/dL (0.55-1.3); GLUCOSE,RANDOM 85 mg/dL (74-106); LIPASE 87 U/L (73-393); MAGNESIUM 2.3 mg/dL (1.8-2.4); PHOSPHOROUS 2.8 mg/dL (2.5-4.9); POTASSIUM 3.8 mmol/L (3.5-5.1); SGOT/AST 22 U/L (15-37); SGPT/ALT 25 U/L (13-61); SODIUM 138 mmol/L (136-145); TOT PROT 7.8 g/dl (6.4-8.2)
== END 2020-02-14 21:04 | disposition home or self-care (01) ==
LOC: JER 16:33
PROC: 3E033NZ Introduction of Analgesics, Hypnotics, Sedatives into Peripheral Vein, Percutaneous Approach (ICD-10-PCS; principal; 2020-02-14)
PROC: 3E033GC Introduction of Other Therapeutic Substance into Peripheral Vein, Percutaneous Approach (ICD-10-PCS; 2020-02-14)
DX: K31.84 Gastroparesis (principal); R11.2 Nausea with vomiting, unspecified; R10.13 Epigastric pain; K52.9 Noninfective gastroenteritis and colitis, unspecified
CPT/HCPCS: 36415; 71045-TC-FY; 74177-TC; 80053; 82550; 82553; 82962; 83690; 83735; 84100; 84484; 85025; 85610; 85730; 93005; 93010; 99285-25; J0131; Q9967

== ENCOUNTER 2020-02-25 12:31 | Emergency (ER) | payer OTHER ==
--- NOTE | 2020-02-25 12:46 | PDOC ---
Rapid Medical Evaluation Chief Complaint: Pain Time Seen by Provider: 02/25/20 12:44 Medical Evaluation: Allergies Allergy/AdvReac Type Severity Reaction Status Date / Time No Known Allergies Allergy Verified 02/25/20 12:44 02/25/20 12:44 CC: epigastric pain with vomiting x 3 days, hx gastritis, sees dr mendez, denies fever, feels generally weak and dizzy, last alcohol drink 2 weeks ago exam: epigastric tenderness, dry heaving in triage, vss Plan: labs, fluids. urine, u tox, zofran, Discharge Disposition - Diagnosis Nausea and vomiting - Referrals - Patient Instructions - Post Discharge Activity
[2020-02-25 12:47] VITALS: BP 130/87; PULSE 68; TEMP 98.5; BMI 24.3
[2020-02-25] MEDS ORDERED: SODIUM CHLORIDE 1,000 ML IV STA ×2 (12:47→12:48)
[2020-02-25] MEDS ORDERED: ONDANSETRON 4 MG/2 ML VIAL IVPUSH ONE (12:47)
[2020-02-25] MEDS ORDERED: FAMOTIDINE 20 MG TABLET PO ONE (13:15)
[2020-02-25] MEDS ORDERED: DICYCLOMINE HCL 20 MG TABLET PO ONE (13:15)
[2020-02-25] MEDS ORDERED: MAG HYDROX/AL HYDROX/SIMETH 30 ML UNIT-DOSE CUP PO ONE (13:15)
[2020-02-25 14:10] LABS: BASO % 0.3 % (0-2.0); EOS % 1.8 % (0-4.5); HEMATOCRIT 45.1 % (35.4-49); HEMOGLOBIN 14.7 GM/dL (11.7-16.9); LYMPH % 26.4 % (8-40); MCH 32.7 pg (25.7-33.7); MCHC 32.6 g/dl (32.0-35.9); MEAN CELL VOLUME 100.2 fl (80-96); MEAN PLT VOLUME 8.7 fl (7.5-11.1); MONO % 8.7 % (3.8-10.2); NEUT % 62.8 % (42.8-82.8); PLATELET COUNT 214 K/MM3 (134-434); RDW 13.3 % (11.9-15.9); WHITE BLOOD COUNT 6.7 K/mm3 (4.0-10.0)
[2020-02-25 14:28] LABS: ALBUMIN 3.9 g/dl (3.4-5.0); BILIRUBIN,TOTAL 0.5 mg/dL (0.2-1); BLOOD UREA NITROGEN 10.2 mg/dL (7-18); MAGNESIUM 2.4 mg/dL (1.8-2.4); POTASSIUM 4.1 mmol/L (3.5-5.1); TOT PROT 6.8 g/dl (6.4-8.2)
[2020-02-25] MEDS ORDERED: FAMOTIDINE 20 MG TABLET ONE (14:33)
[2020-02-25] MEDS ORDERED: MAG HYDROX/AL HYDROX/SIMETH 30 ML UNIT-DOSE CUP ONE (14:33)
[2020-02-25] MEDS ORDERED: DICYCLOMINE HCL 10 MG CAPSULE ONE (14:33)
[2020-02-25 16:37] LABS: PH,URINE >= 9.0 (5.0-8.0); URINE APPEARANCE TURBID; URINE BILIRUBIN NEGATIVE (NEGATIVE); URINE COLOR YELLOW; URINE GLUCOSE (UA) NEGATIVE (NEGATIVE); URINE KETONE NEGATIVE (NEGATIVE); URINE LEUK ESTERASE NEGATIVE (NEGATIVE); URINE NITRITE NEGATIVE (NEGATIVE); URINE PROTEIN NEGATIVE (NEGATIVE); URINE UROBILINOGEN 0.2 mg/dL (0.2-1.0)
[2020-02-25 16:45] LABS: COCAINE, UR NEGATIVE ng/ml (CUTOFF=300); METHADONE, UR NEGATIVE ng/ml (CUTOFF=300); OPIATES, URI NEGATIVE ng/ml (CUTOFF=300); PHENCYCLIDINE,URINE NEGATIVE ng/ml (CUTOFF=25); URINE AMPHETAMINES NEGATIVE ng/ml (CUTOFF=500); URINE BARBITURATES NEGATIVE ng/ml (CUTOFF=200)
[2020-02-25 16:47] LABS: URINE BENZODIAZEPINES NEGATIVE ng/ml (CUTOFF=200)
--- NOTE | 2020-02-25 17:38 | PDOC ---
History of Present Illness - General Chief Complaint: Pain Stated Complaint: ABD PAIN Time Seen by Provider: 02/25/20 12:44 - History of Present Illness Initial Comments: 02/25/20 17:37 39-year-old male with abdominal pain x1 day Past History - Medical History Allergies/Adverse Reactions: Allergies Allergy/AdvReac Type Severity Reaction Status Date / Time No Known Allergies Allergy Verified 02/25/20 12:44 Home Medications: Ambulatory Orders Ondansetron [Zofran *Odt*] 8 mg SL TID #30 od.tablet 03/25/19 Mag Hydrox/Al Hydrox/Simeth [MAALOX *SUSPENSION* -] 30 ml PO Q6H #1 bottle 02/14/20 Ondansetron [Zofran *Odt*] 4 mg SL TID #21 od.tablet 02/14/20 Pantoprazole Sodium [Protonix -] 40 mg PO DAILY #30 tablet.ec 02/14/20 Asthma: Yes COPD: No DVT: No Dementia: No GI Disorders: Yes (gastroparesis) - Surgical History Abdominal Surgery: Yes (STABBIN08/06/16) - Immunization History Immunization Up to Date: No - Psycho-Social/Smoking History Smoking Status: Yes Smoking History: Unknown if ever smoked Have you smoked in the past 12 months: Yes Number of Cigarettes Smoked Daily: 20 'Breaking Loose' booklet given: 10/11/17 - Substance Abuse Hx (Audit-C & DAST Scrn) How often the patient has a drink containing alcohol: Never Score: In Men: 4 or > Positive; In Women: 3 or > Positive: 0 Screen Result (Pos requires Nsg. Audit-10AR): Negative In the last yr the pt used illegal drug/Rx for NonMed reason: No Score: Yes response is considered Positive: 0 Screen Result (Positive result requires Nsg. DAST-10): Negative Review of Systems - Review of Systems ABD/GI: Yes: See HPI *Physical Exam - Vital Signs Last Vital Signs Temp Pulse Resp BP Pulse Ox 98.5 F 68 18 130/87 99 02/25/20 12:44 02/25/20 12:44 02/25/20 12:44 02/25/20 12:44 02/25/20 12:44 - Physical Exam 02/25/20 17:37 GENERAL: The patient is awake, alert, and fully oriented, in no acute distress. HEAD: Normal with no signs of trauma. EYES: sclera anicteric, conjunctiva clear. ENT: Ears normal tympanic membranes normal oropharynx clear uvula midline NECK: Normal range of motion LUNGS: Breath sounds equal, clear to auscultation bilaterally. No wheezes, and no crackles. HEART: S1 and S2 without murmur, rub or gallop. ABDOMEN: Diffuse tenderness with guarding even to light touch EXTREMITIES: Normal range of motion, no edema. No clubbing or cyanosis. No cords, erythema, or tenderness. NEUROLOGICAL: Cranial nerves II through XII grossly intact. PSYCH: Normal mood, normal affect. SKIN: Warm, Dry, normal turgor, no rashes or lesions noted. ED Treatment Course - LABORATORY CBC & Chemistry Diagram: 02/25/20 13:50 02/25/20 13:50 - ADDITIONAL ORDERS Additional order review: Laboratory Results 02/25/20 02/25/20 02/25/20 16:00 16:00 13:50 Sodium 141 Potassium 4.1 Chloride 107 Carbon Dioxide 28 Anion Gap 5 L BUN 10.2 Creatinine 1.0 Est GFR (CKD-EPI)AfAm 107.87 Est GFR (CKD-EPI)NonAf 93.07 Random Glucose 89 Calcium 9.0 Magnesium 2.4 Total Bilirubin 0.5 AST 16 ALT 18 Alkaline Phosphatase 52 Total Protein 6.8 Albumin 3.9 Lipase 88 Urine Color Yellow Urine Appearance Turbid Urine pH >= 9.0 H D Ur Specific [place] 1.017 Urine Protein Negative Urine Glucose (UA) Negative Urine Ketones Negative Urine Blood Negative Urine Nitrite Negative Urine Bilirubin Negative Urine Urobilinogen 0.2 Ur Leukocyte Esterase Negative Opiates Screen Negative Methadone Screen Negative Barbiturate Screen Negative Phencyclidine Screen Negative Ur Amphetamines Screen Negative MDMA (Ecstasy) Screen Negative Benzodiazepines Screen Negative Cocaine Screen Negative U Marijuana (THC) Screen Positive A* 02/25/20 13:50 RBC 4.50 MCV 100.2 H MCHC 32.6 RDW 13.3 MPV 8.7 Neutrophils % 62.8 Lymphocytes % 26.4 Monocytes % 8.7 Eosinophils % 1.8 Basophils % 0.3 - RADIOLOGY Radiology Studies Ordered: Category Date Time Status ABDOMEN & PELVIS CT WITH CONTR [CT] Stat CT Scan 02/25/20 16:35 Taken - Medications Given in the ED: ED Medications Discontinued Medications Generic Name Dose Route Start Last Admin Trade Name Dayday PRN Reason Stop Dose Admin Al Hydroxide/Mg Hydroxide 30 ml 02/25/20 13:15 02/25/20 14:43 Mylanta Oral Suspension - PO 02/25/20 13:16 30 ml ONCE ONE Administration Dicyclomine HCl 20 mg 02/25/20 13:15 02/25/20 14:43 Bentyl - PO 02/25/20 13:16 20 mg ONCE ONE Administration Famotidine 20 mg 02/25/20 13:15 02/25/20 14:43 Pepcid - PO 02/25/20 13:16 20 mg ONCE ONE Administration Sodium Chloride 1,000 mls @ 1,000 mls/hr 02/25/20 12:47 02/25/20 13:50 Normal Saline - IV 02/25/20 13:46 1,000 mls/hr ASDIR STA Administration Sodium Chloride 1,000 mls @ 1,000 mls/hr 02/25/20 12:48 02/25/20 14:42 Normal Saline - IV 02/25/20 13:47 1,000 mls/hr ASDIR STA Administration Ondansetron HCl 4 mg 02/25/20 12:47 02/25/20 13:50 Zofran Injection IVPUSH 02/25/20 12:48 4 mg ONCE ONE Administration Medical Decision Making - Medical Decision Making 02/25/20 17:37 Patient eloped pending CAT scan results Discharge - Discharge Information Problems reviewed: Yes Clinical Impression/Diagnosis: Nausea and vomiting, Abdominal pain Disposition: ELOPED - Follow up/Referral Referrals: Elan Dewey [Primary Care Provider] - - Patient Discharge Instructions - Post Discharge Activity
== END 2020-02-25 17:37 | disposition left against medical advice (07) ==
LOC: JER 12:31
PROC: 3E033NZ Introduction of Analgesics, Hypnotics, Sedatives into Peripheral Vein, Percutaneous Approach (ICD-10-PCS; principal; 2020-02-25)
PROC: 3E0337Z Introduction of Electrolytic and Water Balance Substance into Peripheral Vein, Percutaneous Approach (ICD-10-PCS; 2020-02-25)
DX: R11.2 Nausea with vomiting, unspecified (principal); R10.9 Unspecified abdominal pain
CPT/HCPCS: 36415; 74177-TC; 80053; 80307; 81003; 83690; 83735; 85025; 87086; 99285-25; Q9967

== ENCOUNTER 2020-03-25 07:05 | Emergency (ER) | payer OTHER ==
[2020-03-25 07:39] VITALS: BMI 23.1
[2020-03-25] MEDS ORDERED: KETOROLAC TROMETHAMINE 30 MG/1 ML VIAL IM ONE (07:54)
[2020-03-25] MEDS ORDERED: KETOROLAC TROMETHAMINE 30 MG/1 ML VIAL ONE (08:02)
--- NOTE | 2020-03-25 08:10 | PDOC ---
History of Present Illness - General Chief Complaint: Toothache Stated Complaint: SWELLING OF THE MOUTH Time Seen by Provider: 03/25/20 07:48 History Source: Patient Exam Limitations: No Limitations - History of Present Illness Initial Comments: 03/25/20 08:06 40-year-old male complaining of lower left-sided dental pain since yesterday. Denies trauma, fever, chills, difficulty breathing, shortness of breath, chest pain or any other complaint. Took acetaminophen 500 mg 1 tablet last night. Patient has a dentist however has not called to make an appointment. ROS: as above PE: GENERAL: well-appearing, NAD, speaking full sentences HEAD: NCAT EYES: Pupils equal, round and reactive to light, sclera anicteric, conjunctiva clear ENT: Poor dentition, no dental abscesses or cracked tooth noted, minimal left lower chin swelling, pharynx: no erythema, no exudate, uvula midline NECK: supple CHEST: nontender RESP: clear, no w/r/r CARDIO: rrr, no m/g/r ABD: +BS, soft, nontender, non distended BACK: no midline spinal ttp, no CVAT EXTREMITIES: Normal range of motion, no edema NEUROLOGICAL: Normal speech, normal gait SKIN: Warm, Dry Is this a multiple visit Asthma Patient?: No Past History - Medical History Allergies/Adverse Reactions: Allergies Allergy/AdvReac Type Severity Reaction Status Date / Time No Known Allergies Allergy Verified 02/25/20 12:44 Home Medications: Ambulatory Orders NK [No Known Home Medication] 03/25/20 Asthma: Yes COPD: No DVT: No Dementia: No GI Disorders: Yes (gastroparesis) - Surgical History Abdominal Surgery: Yes (STABBIN08/06/16) - Immunization History Immunization Up to Date: No - Psycho-Social/Smoking History Smoking Status: Yes Smoking History: Current every day smoker Have you smoked in the past 12 months: Yes Number of Cigarettes Smoked Daily: 10 Information on smoking cessation initiated: No 'Breaking Loose' booklet given: 10/11/17 - Substance Abuse Hx (Audit-C & DAST Scrn) How often the patient has a drink containing alcohol: 2-4 times / month Number of drinks the patient has on a typical day: 3 or 4 How often the patient has six or more drinks on one occasion: Never Score: In Men: 4 or > Positive; In Women: 3 or > Positive: 3 Screen Result (Pos requires Nsg. Audit-10AR): Negative In the last yr the pt used illegal drug/Rx for NonMed reason: Yes Score: Yes response is considered Positive: 1 Screen Result (Positive result requires Nsg. DAST-10): Positive *Physical Exam - Vital Signs Last Vital Signs Temp Pulse Resp BP Pulse Ox 98.8 F 86 16 166/112 H 99 03/25/20 07:10 03/25/20 07:10 03/25/20 07:10 03/25/20 07:10 03/25/20 07:10 Medical Decision Making - Medical Decision Making 03/25/20 08:08 40-year-old male complaining of lower left-sided dental pain since yesterday. Denies trauma, fever, chills, difficulty breathing, shortness of breath, chest pain or any other complaint. Took acetaminophen 500 mg 1 tablet last night. Patient has a dentist however has not called to make an appointment. Toradol 30 mg IM x1 Prescription sent for amoxicillin to pharmacy Advised patient to call dental today to schedule an appointment Return precautions discussed Discharge - Discharge Information Problems reviewed: Yes Clinical Impression/Diagnosis: Toothache Condition: Stable Disposition: HOME - Admission No - Follow up/Referral Referrals: Elan Dewey [Primary Care Provider] - - Patient Discharge Instructions Additional Instructions: Take amoxicillin 500 mg 1 tablet 3 times a day Alternate between acetaminophen 975 mg and ibuprofen 600 mg every 6 hours as needed Call your dentist today to schedule a follow-up appointment - Post Discharge Activity
[2020-03-25 08:12] VITALS: BP 155/100; PULSE 75; TEMP 98.1
== END 2020-03-25 08:23 | disposition home or self-care (01) ==
LOC: JER 07:05
PROC: 3E023GC Introduction of Other Therapeutic Substance into Muscle, Percutaneous Approach (ICD-10-PCS; principal; 2020-03-25)
DX: K08.89 Other specified disorders of teeth and supporting structures (principal)
CPT/HCPCS: 99284-25

== ENCOUNTER 2020-08-22 13:17 | Emergency (ER) | payer OTHER ==
[2020-08-22 13:23] VITALS: BP 136/77; PULSE 69; BMI 24.5
== END 2020-08-22 15:07 | disposition home or self-care (01) ==
LOC: JERFT 13:17
DX: S63.91XA Sprain of unspecified part of right wrist and hand, initial encounter (principal)
CPT/HCPCS: 73130-TC-RT-FY; 99284-25

== ENCOUNTER 2020-11-04 23:42 | Emergency (ER) | payer OTHER ==
[2020-11-04 23:51] VITALS: TEMP 98.6; BMI 27.8
[2020-11-05] MEDS ORDERED: METOCLOPRAMIDE HCL INJECTION 10 MG/2 ML VIAL IVPUSH ONE (00:55)
[2020-11-05] MEDS ORDERED: LACTATED RINGERS SOLUTION 1000 ML INFUS.BAG IV ONE (00:56)
[2020-11-05] MEDS ORDERED: FAMOTIDINE 20 MG/50 ML IVPB 20 MG/50 ML MG IVPB ONE ×2 (00:56→01:19)
[2020-11-05] MEDS ORDERED: MAG HYDROX/AL HYDROX/SIMETH 30 ML UNIT-DOSE CUP PO ONE (00:56)
[2020-11-05] MEDS ORDERED: METOCLOPRAMIDE HCL INJECTION 10 MG/2 ML VIAL ONE (01:19)
[2020-11-05] MEDS ORDERED: MAG HYDROX/AL HYDROX/SIMETH 30 ML UNIT-DOSE CUP ONE (01:19)
[2020-11-05 01:36] LABS: BASO % 0.3 % (0-2.0); HEMOGLOBIN 16.2 GM/dL (11.7-16.9); LYMPH % 17.3 % (8-40); MCH 32.9 pg (25.7-33.7); MCHC 33.1 g/dl (32.0-35.9); MEAN CELL VOLUME 99.4 fl (80-96); MONO % 3.8 % (3.8-10.2); NEUT % 78.6 % (42.8-82.8); PLATELET COUNT 205 K/MM3 (134-434); RBC 4.93 M/mm3 (4.00-5.60); RDW 13.8 % (11.9-15.9); WHITE BLOOD COUNT 7.5 K/mm3 (4.0-10.0)
[2020-11-05 01:46] LABS: INR 1.04 (0.83-1.09); PROTHROMBIN TIME (PATIENT) 12.8 SEC (9.7-13.0)
[2020-11-05 01:48] LABS: ACTIVATED PTT 33.8 SECONDS (25.2-36.5)
[2020-11-05 01:55] LABS: CHLORIDE 102 mmol/L (98-107); POTASSIUM 4.3 mmol/L (3.5-5.1); SODIUM 135 mmol/L (136-145)
[2020-11-05 01:56] LABS: CALCIUM 9.7 mg/dL (8.5-10.1)
[2020-11-05 01:57] LABS: ALBUMIN 4.5 g/dl (3.4-5.0); ANION GAP 5 MMOL/L (8-16); BLOOD UREA NITROGEN 9.4 mg/dL (7-18); CO2 28 mmol/L (21-32); GLUCOSE,RANDOM 105 mg/dL (74-106)
[2020-11-05 01:58] LABS: LIPASE 64 U/L (73-393)
[2020-11-05 02:00] LABS: SGOT/AST 15 U/L (15-37); SGPT/ALT 18 U/L (13-61)
[2020-11-05 02:01] LABS: BILIRUBIN,TOTAL 0.6 mg/dL (0.2-1)
[2020-11-05 02:02] LABS: TOT PROT 8.4 g/dl (6.4-8.2)
[2020-11-05 02:03] LABS: ALK PHOS 74 U/L (45-117)
[2020-11-05 03:47] VITALS: BP 136/93; PULSE 76
== END 2020-11-05 03:52 | disposition home or self-care (01) ==
LOC: JER 23:42
PROC: 3E033GC Introduction of Other Therapeutic Substance into Peripheral Vein, Percutaneous Approach (ICD-10-PCS; principal; 2020-11-04)
PROC: 3E033GC Introduction of Other Therapeutic Substance into Peripheral Vein, Percutaneous Approach (ICD-10-PCS; 2020-11-04)
DX: R10.13 Epigastric pain (principal); R11.2 Nausea with vomiting, unspecified
CPT/HCPCS: 36415; 80053; 83605; 83690; 84484; 85025; 85610; 85730; 93005; 93010; 99284-25

== ENCOUNTER 2022-05-25 12:50 | Emergency (ER) | payer OTHER ==
[2022-05-25 12:59] VITALS: RESP 20; TEMP 98.1; BMI 24.0
[2022-05-25] MEDS ORDERED: FAMOTIDINE 20 MG/50 ML IVPB 20 MG/50 ML MG IVPB ONE ×2 (13:33→13:39)
[2022-05-25] MEDS ORDERED: HALOPERIDOL DECANOATE 100 MG/ML IM ONE (13:33)
[2022-05-25] MEDS ORDERED: SODIUM CHLORIDE 0.9% 500 ML INFUS.BAG IV ONE (13:33)
[2022-05-25] MEDS ORDERED: KETOROLAC TROMETHAMINE 30 MG/1 ML VIAL IVPUSH ONE (13:37)
[2022-05-25] MEDS ORDERED: KETOROLAC TROMETHAMINE 30 MG/1 ML VIAL ONE (13:39)
[2022-05-25] MEDS ORDERED: HALOPERIDOL LACTATE 5 MG/ML IM ONE (13:49)
[2022-05-25] MEDS ORDERED: MAG HYDROX/AL HYDROX/SIMETH 30 ML UNIT-DOSE CUP PO ONE (14:08)
[2022-05-25] MEDS ORDERED: LIDOCAINE VISCOUS 2% ORAL/TOP 15 ML UNIT-DOSE CUP MM ONE (14:08)
[2022-05-25] MEDS ORDERED: diphenhydrAMINE HCL 12.5 MG/5 ML UNIT-DOSE CUPS PO ONE (14:09)
[2022-05-25] MEDS ORDERED: morphine CARPU-JECT 2 MG/1 ML DISP.SYRIN IVPUSH ONE (14:15)
[2022-05-25 14:59] LABS: BASO % 0.4 % (0-2.0); EOS % 1.1 % (0-4.5); HEMATOCRIT 43.9 % (35.4-49); HEMOGLOBIN 14.6 GM/dL (11.7-16.9); LYMPH % 25.5 % (8-40); MCH 31.6 pg (25.7-33.7); MCHC 33.4 g/dl (32.0-35.9); MEAN CELL VOLUME 94.5 fl (80-96); MEAN PLT VOLUME 8.8 fl (7.5-11.1); MONO % 6.4 % (3.8-10.2); NEUT % 66.6 % (42.8-82.8); PLATELET COUNT 243 10^3/uL (134-434); RBC 4.64 M/mm3 (4.00-5.60); RDW 13.5 % (11.9-15.9)
[2022-05-25] MEDS ORDERED: LIDOCAINE VISCOUS 2% ORAL/TOP 15 ML UNIT-DOSE CUP ONE (14:59)
[2022-05-25] MEDS ORDERED: diphenhydrAMINE HCL 12.5 MG/5 ML UNIT-DOSE CUPS ONE (14:59)
[2022-05-25] MEDS ORDERED: MAG HYDROX/AL HYDROX/SIMETH 30 ML UNIT-DOSE CUP ONE (15:00)
[2022-05-25 15:17] LABS: BLOOD UREA NITROGEN 10.5 mg/dL (7-18); CALCIUM 9.5 mg/dL (8.5-10.1)
[2022-05-25 15:21] LABS: BILIRUBIN,TOTAL 0.6 mg/dL (0.2-1); CREATININE 0.9 mg/dL (0.55-1.3)
[2022-05-25 15:23] LABS: TOT PROT 7.3 g/dl (6.4-8.2)
[2022-05-25 16:48] VITALS: BP 118/85; PULSE 71
== END 2022-05-25 17:00 | disposition home or self-care (01) ==
LOC: JER 12:50
PROC: 3E033GC Introduction of Other Therapeutic Substance into Peripheral Vein, Percutaneous Approach (ICD-10-PCS; principal; 2022-05-25)
PROC: 3E0333Z Introduction of Anti-inflammatory into Peripheral Vein, Percutaneous Approach (ICD-10-PCS; 2022-05-25)
PROC: 3E033NZ Introduction of Analgesics, Hypnotics, Sedatives into Peripheral Vein, Percutaneous Approach (ICD-10-PCS; 2022-05-25)
PROC: 3E023NZ Introduction of Analgesics, Hypnotics, Sedatives into Muscle, Percutaneous Approach (ICD-10-PCS; 2022-05-25)
DX: R11.15 Cyclical vomiting syndrome unrelated to migraine (principal)
CPT/HCPCS: 36415; 80053; 83690; 85025; 93005; 93010; 99284-25

== ENCOUNTER 2022-08-27 14:55 | Emergency (ER) | payer OTHER ==
[2022-08-27 15:03] VITALS: TEMP 98.8; BMI 24.3
[2022-08-27] MEDS ORDERED: MAG HYDROX/AL HYDROX/SIMETH -MYLANTA- ORAL SUSPENSION PO ONE ×2 (15:30→19:25)
[2022-08-27] MEDS ORDERED: FAMOTIDINE 20 MG TABLET PO ONE (15:31)
[2022-08-27] MEDS ORDERED: ONDANSETRON 4 MG TABLET PO ONE (15:31)
[2022-08-27] MEDS ORDERED: SODIUM CHLORIDE 0.9% 500 ML INFUS.BAG IV ONE ×2 (15:32→18:27)
[2022-08-27] MEDS ORDERED: FAMOTIDINE 20 MG TABLET ONE (15:41)
[2022-08-27] MEDS ORDERED: ONDANSETRON *ODT* 4 MG TABLET ONE (15:42)
[2022-08-27] MEDS ORDERED: MAG HYDROX/AL HYDROX/SIMETH 30 ML UNIT-DOSE CUP ONE ×2 (15:42→19:24)
[2022-08-27] MEDS ORDERED: ONDANSETRON 4 MG/2 ML VIAL ONE (15:50)
[2022-08-27] MEDS ORDERED: FAMOTIDINE 10 MG/ML VIAL IVPB ONE (15:50)
[2022-08-27 16:12] LABS: BASO % 0.6 % (0-2.0); EOS % 1.8 % (0-4.5); HEMATOCRIT 46.4 % (35.4-49); HEMOGLOBIN 15.3 GM/dL (11.7-16.9); LYMPH % 23.7 % (8-40); MCHC 32.9 g/dl (32.0-35.9); MEAN CELL VOLUME 94.3 fl (80-96); MEAN PLT VOLUME 8.6 fl (7.5-11.1); MONO % 8.9 % (3.8-10.2); PLATELET COUNT 214 10^3/uL (134-434); RBC 4.92 M/mm3 (4.00-5.60); RDW 13.9 % (11.9-15.9); WHITE BLOOD COUNT 6.6 K/mm3 (4.0-10.0)
[2022-08-27 16:41] LABS: ALBUMIN 3.9 g/dl (3.4-5.0); BLOOD UREA NITROGEN 13.9 mg/dL (7-18); MAGNESIUM 1.9 mg/dL (1.8-2.4)
[2022-08-27 16:45] LABS: BILIRUBIN,TOTAL 0.9 mg/dL (0.2-1)
[2022-08-27 16:46] LABS: TOT PROT 7.2 g/dl (6.4-8.2)
[2022-08-27] MEDS ORDERED: METOCLOPRAMIDE HCL INJECTION 10 MG/2 ML VIAL IVPUSH ONE (18:27)
[2022-08-27] MEDS ORDERED: METOCLOPRAMIDE HCL INJECTION 10 MG/2 ML VIAL ONE (18:35)
[2022-08-27 19:11] VITALS: BP 152/80; PULSE 72; RESP 18
== END 2022-08-27 19:52 | disposition home or self-care (01) ==
LOC: JER 14:55
PROC: 3E033GC Introduction of Other Therapeutic Substance into Peripheral Vein, Percutaneous Approach (ICD-10-PCS; principal; 2022-08-27)
DX: R11.15 Cyclical vomiting syndrome unrelated to migraine (principal); R10.13 Epigastric pain
CPT/HCPCS: 0241U-QW; 36415; 76705-TC; 80053; 83690; 83735; 85025; 93005; 93010; 99285-25

== ENCOUNTER 2022-10-12 22:02 | Observation (INO) | payer OTHER ==
[2022-10-12 22:10] VITALS: BMI 25.8
[2022-10-12] MEDS ORDERED: MAG HYDROX/AL HYDROX/SIMETH 30 ML UNIT-DOSE CUP PO ONE (22:32)
[2022-10-12] MEDS ORDERED: SODIUM CHLORIDE 1,000 ML IV STA (22:32)
[2022-10-12] MEDS ORDERED: FAMOTIDINE 20 MG/50 ML IVPB 20 MG/50 ML MG IVPB ONE ×2 (22:32→22:52)
[2022-10-12] MEDS ORDERED: ONDANSETRON 4 MG/2 ML VIAL IVPUSH ONE (22:32)
[2022-10-12] MEDS ORDERED: MAG HYDROX/AL HYDROX/SIMETH 30 ML UNIT-DOSE CUP ONE (22:52)
[2022-10-12] MEDS ORDERED: ONDANSETRON 4 MG/2 ML VIAL ONE (22:52)
[2022-10-12 23:15] LABS: BASO % 0.5 % (0-2.0); EOS % 0.4 % (0-4.5); HEMATOCRIT 44.5 % (35.4-49); HEMOGLOBIN 15.4 GM/dL (11.7-16.9); LYMPH % 21.2 % (8-40); MCH 32.7 pg (25.7-33.7); MCHC 34.6 g/dl (32.0-35.9); MEAN CELL VOLUME 94.6 fl (80-96); MEAN PLT VOLUME 8.5 fl (7.5-11.1); MONO % 5.2 % (3.8-10.2); NEUT % 72.7 % (42.8-82.8); PLATELET COUNT 204 10^3/uL (134-434); RBC 4.71 M/mm3 (4.00-5.60); RDW 13.9 % (11.9-15.9); WHITE BLOOD COUNT 5.7 K/mm3 (4.0-10.0)
[2022-10-12 23:36] LABS: CALCIUM 9.4 mg/dL (8.5-10.1)
[2022-10-12 23:37] LABS: ALBUMIN 4.3 g/dl (3.4-5.0); BLOOD UREA NITROGEN 9.5 mg/dL (7-18)
[2022-10-12] MEDS ORDERED: METOCLOPRAMIDE HCL INJECTION 10 MG/2 ML VIAL IVPB ONE (23:37)
[2022-10-12 23:41] LABS: BILIRUBIN,TOTAL 0.7 mg/dL (0.2-1); TOT PROT 7.8 g/dl (6.4-8.2)
[2022-10-13] MEDS ORDERED: METOCLOPRAMIDE HCL INJECTION 10 MG/2 ML VIAL ONE (00:47)
[2022-10-13] MEDS ORDERED: SODIUM CHLORIDE 1,000 ML IV SCH (06:30)
[2022-10-13] MEDS ORDERED: ONDANSETRON 4 MG/2 ML VIAL IVPUSH PRN (06:33)
[2022-10-13] MEDS ORDERED: ACETAMINOPHEN 1000 MG/100 ML BAG IVPB PRN (06:34)
[2022-10-13] MEDS ORDERED: KCL 10 MEQ IVPB 10 MEQ/100 ML INFUS.BAG IVPB ONE (08:38)
[2022-10-13 08:39] LABS: MAGNESIUM 1.7 mg/dL (1.8-2.4)
[2022-10-13 08:43] LABS: PHOSPHOROUS 1.7 mg/dL (2.5-4.9)
[2022-10-13] MEDS ORDERED: PANTOPRAZOLE SODIUM 40 MG VIAL ONE (08:59)
[2022-10-13] MEDS ORDERED: ENOXAPARIN NA (PORCINE) 40 MG/0.4 ML DISP.SYRIN SQ ONE (08:59)
[2022-10-13] MEDS ORDERED: MAGNESIUM SULFATE IN WATER 2 GM/50 ML IVPB IVPB ONE ×2 (08:59→09:00)
[2022-10-13] MEDS ORDERED: ENOXAPARIN NA (PORCINE) 40 MG/0.4 ML DISP.SYRIN SQ SCH (10:00)
[2022-10-13] MEDS ORDERED: POTASSIUM PHOSPHATE 30 MM in SODIUM CHLORIDE 500 ML IVPB ONE (10:00)
[2022-10-13] MEDS ORDERED: PANTOPRAZOLE SODIUM 40 MG VIAL IVPUSH SCH (10:00)
[2022-10-13] MEDS ORDERED: NICOTINE 7 MG/24 HOURS TOPICAL PATCH TD SCH (10:15)
[2022-10-13] MEDS ORDERED: METOCLOPRAMIDE HCL 10 MG TABLET (FP) PO SCH (11:15)
[2022-10-13] MEDS: KCL 10 MEQ IVPB 10 MEQ/100 ML INFUS.BAG IVPB SCH (14:35)
[2022-10-13 14:37] VITALS: BP 135/79; PULSE 72; RESP 16; TEMP 98
== END 2022-10-13 15:19 | disposition home or self-care (01) ==
LOC: JER 22:02 → UNDOADMOB 10-13 04:18 → INTOOBSV 10-13 04:18 → JERBED 10-13 04:18 → J5S 10-13 10:13 → JERBED 10-13 10:50
PROVIDERS: ADMIT Internal Medicine; ATTEND Internal Medicine
PROC: 3E023GC Introduction of Other Therapeutic Substance into Muscle, Percutaneous Approach (ICD-10-PCS; principal; 2022-10-13)
PROC: 3E033GC Introduction of Other Therapeutic Substance into Peripheral Vein, Percutaneous Approach (ICD-10-PCS; 2022-10-13)
PROC: 3E0337Z Introduction of Electrolytic and Water Balance Substance into Peripheral Vein, Percutaneous Approach (ICD-10-PCS; 2022-10-13)
DX: R11.2 Nausea with vomiting, unspecified (principal); R10.9 Unspecified abdominal pain; F17.210 Nicotine dependence, cigarettes, uncomplicated; Z87.828 Personal history of other (healed) physical injury and trauma; J45.909 Unspecified asthma, uncomplicated; R06.00 Dyspnea, unspecified; Z29.8 Encounter for other specified prophylactic measures; T78.49XA Other allergy, initial encounter
CPT/HCPCS: 0241U-QW; 36415; 71045-TC-FY; 74174-TC; 80053; 83605; 83690; 83735; 84100; 84443; 84484; 85025; 93005; 93010; 96361; 96365; 96367; 96372; 96375; 99285-25; G0378; Q9967

== ENCOUNTER 2023-01-28 17:18 | Emergency (ER) | payer OTHER ==
[2023-01-28 17:26] VITALS: BP 156/99; PULSE 70; RESP 18; TEMP 99.2; BMI 23.6
[2023-01-28] MEDS ORDERED: ONDANSETRON 4 MG/2 ML VIAL IVPUSH ONE (17:34)
[2023-01-28] MEDS ORDERED: SODIUM CHLORIDE 1,000 ML IV STA (17:34)
[2023-01-28] MEDS ORDERED: ACETAMINOPHEN 1000 MG/100 ML BAG IVPB ONE (17:34)
[2023-01-28] MEDS ORDERED: FAMOTIDINE 20 MG/50 ML IVPB 20 MG/50 ML MG IVPB ONE (17:35)
[2023-01-28] MEDS ORDERED: MAG HYDROX/AL HYDROX/SIMETH 30 ML UNIT-DOSE CUP PO ONE (17:35)
[2023-01-28] MEDS ORDERED: MAG HYDROX/AL HYDROX/SIMETH 30 ML UNIT-DOSE CUP ONE (17:45)
[2023-01-28] MEDS ORDERED: ACETAMINOPHEN INJECTION 100 ML IVPB ONE (17:45)
[2023-01-28] MEDS ORDERED: FAMOTIDINE 10 MG/ML VIAL IVPB ONE (17:46)
[2023-01-28] MEDS ORDERED: ONDANSETRON 4 MG/2 ML VIAL ONE (17:46)
[2023-01-28 17:53] LABS: BASO % 0.6 % (0-2.0); EOS % 0.3 % (0-4.5); HEMATOCRIT 47.9 % (35.4-49); HEMOGLOBIN 15.8 GM/dL (11.7-16.9); LYMPH % 14.3 % (8-40); MCH 31.9 pg (25.7-33.7); MEAN CELL VOLUME 96.5 fl (80-96); MEAN PLT VOLUME 8.4 fl (7.5-11.1); NEUT % 80.8 % (42.8-82.8); PLATELET COUNT 226 10^3/uL (134-434); RBC 4.97 M/mm3 (4.00-5.60); RDW 14.6 % (11.9-15.9); WHITE BLOOD COUNT 7.4 K/mm3 (4.0-10.0)
[2023-01-28 18:12] LABS: POTASSIUM 4.1 mmol/L (3.5-5.1)
[2023-01-28 18:13] LABS: CALCIUM 9.6 mg/dL (8.5-10.1)
[2023-01-28 18:15] LABS: ALBUMIN 4.4 g/dl (3.4-5.0); BLOOD UREA NITROGEN 10.8 mg/dL (7-18); MAGNESIUM 1.8 mg/dL (1.8-2.4)
[2023-01-28 18:18] LABS: BILIRUBIN,TOTAL 0.7 mg/dL (0.2-1); TOT PROT 7.6 g/dl (6.4-8.2)
[2023-01-28] MEDS ORDERED: HALOPERIDOL LACTATE 5 MG/ML IM ONE ×2 (19:11→19:15)
== END 2023-01-28 21:39 | disposition home or self-care (01) ==
LOC: JER 17:18
PROC: 3E033GC Introduction of Other Therapeutic Substance into Peripheral Vein, Percutaneous Approach (ICD-10-PCS; principal; 2023-01-28)
PROC: 3E033GC Introduction of Other Therapeutic Substance into Peripheral Vein, Percutaneous Approach (ICD-10-PCS; 2023-01-28)
PROC: 3E033GC Introduction of Other Therapeutic Substance into Peripheral Vein, Percutaneous Approach (ICD-10-PCS; 2023-01-28)
PROC: 3E0337Z Introduction of Electrolytic and Water Balance Substance into Peripheral Vein, Percutaneous Approach (ICD-10-PCS; 2023-01-28)
PROC: 3E023GC Introduction of Other Therapeutic Substance into Muscle, Percutaneous Approach (ICD-10-PCS; 2023-01-28)
DX: R11.2 Nausea with vomiting, unspecified (principal); R19.7 Diarrhea, unspecified; R10.84 Generalized abdominal pain; R11.15 Cyclical vomiting syndrome unrelated to migraine
CPT/HCPCS: 36415; 71045-TC-FY; 80053; 82962; 83690; 83735; 84484; 85025; 93005; 93010; 99285-25

== ENCOUNTER 2023-02-03 19:23 | Observation (INO) | payer OTHER ==
[2023-02-03] MEDS ORDERED: MAG HYDROX/AL HYDROX/SIMETH 30 ML UNIT-DOSE CUP PO ONE (20:02)
[2023-02-03] MEDS ORDERED: ACETAMINOPHEN 1000 MG/100 ML BAG IVPB ONE (20:02)
[2023-02-03] MEDS ORDERED: FAMOTIDINE 20 MG/50 ML IVPB 20 MG/50 ML MG IVPB ONE ×2 (20:02→20:30)
[2023-02-03] MEDS ORDERED: SODIUM CHLORIDE 1,000 ML IV STA (20:02)
[2023-02-03] MEDS ORDERED: ACETAMINOPHEN INJECTION 100 ML IVPB ONE (20:29)
[2023-02-03] MEDS ORDERED: MAG HYDROX/AL HYDROX/SIMETH 30 ML UNIT-DOSE CUP ONE (20:29)
[2023-02-03] MEDS ORDERED: ONDANSETRON 4 MG/2 ML VIAL IVPUSH ONE (20:59)
[2023-02-03 21:10] LABS: BASO % 0.3 % (0-2.0); EOS % 0.7 % (0-4.5); HEMOGLOBIN 15.7 GM/dL (11.7-16.9); LYMPH % 23.5 % (8-40); MCH 31.5 pg (25.7-33.7); MCHC 33.4 g/dl (32.0-35.9); MEAN CELL VOLUME 94.5 fl (80-96); MEAN PLT VOLUME 8.6 fl (7.5-11.1); MONO % 8.2 % (3.8-10.2); NEUT % 67.3 % (42.8-82.8); PLATELET COUNT 200 10^3/uL (134-434); RBC 4.97 M/mm3 (4.00-5.60); RDW 14.2 % (11.9-15.9); WHITE BLOOD COUNT 6.7 K/mm3 (4.0-10.0)
[2023-02-03 21:31] LABS: POTASSIUM 3.9 mmol/L (3.5-5.1)
[2023-02-03 21:33] LABS: BLOOD UREA NITROGEN 10.5 mg/dL (7-18); CALCIUM 9.3 mg/dL (8.5-10.1)
[2023-02-03 21:34] LABS: ALBUMIN 4.1 g/dl (3.4-5.0); MAGNESIUM 1.9 mg/dL (1.8-2.4)
[2023-02-03 21:37] LABS: CREATININE 0.9 mg/dL (0.55-1.3)
[2023-02-03 21:38] LABS: BILIRUBIN,TOTAL 0.7 mg/dL (0.2-1); TOT PROT 7.3 g/dl (6.4-8.2)
[2023-02-03] MEDS ORDERED: ONDANSETRON 4 MG/2 ML VIAL ONE (21:48)
[2023-02-04] MEDS ORDERED: LACTATED RINGERS SOLUTION 1,000 ML/1,000 ML INFUS.BAG IV SCH (00:45)
[2023-02-04] MEDS ORDERED: KETOROLAC TROMETHAMINE 15 MG/ML VIAL IVPB ONE (01:00)
[2023-02-04] MEDS ORDERED: ACETAMINOPHEN 1000 MG/100 ML BAG IVPB PRN (02:47)
[2023-02-04 03:32] VITALS: BMI 20.7
[2023-02-04] MEDS ORDERED: ONDANSETRON 4 MG/2 ML VIAL IVPUSH PRN (05:39)
[2023-02-04] MEDS ORDERED: ONDANSETRON 4 MG/2 ML VIAL IVPB STA (08:34)
[2023-02-04] MEDS ORDERED: METOCLOPRAMIDE HCL INJECTION 10 MG/2 ML VIAL IVPB SCH ×2 (08:45→08:52)
[2023-02-04 09:28] LABS: BASO % 0.5 % (0-2.0); EOS % 2.9 % (0-4.5); HEMATOCRIT 41.2 % (35.4-49); HEMOGLOBIN 14.1 GM/dL (11.7-16.9); LYMPH % 25.8 % (8-40); MCH 32.2 pg (25.7-33.7); MCHC 34.2 g/dl (32.0-35.9); MEAN CELL VOLUME 94.2 fl (80-96); MEAN PLT VOLUME 8.6 fl (7.5-11.1); MONO % 11.6 % (3.8-10.2); NEUT % 59.2 % (42.8-82.8); PLATELET COUNT 177 10^3/uL (134-434); RBC 4.37 M/mm3 (4.00-5.60); RDW 14.1 % (11.9-15.9)
[2023-02-04 09:43] LABS: POTASSIUM 3.5 mmol/L (3.5-5.1)
[2023-02-04 09:55] LABS: CALCIUM 8.5 mg/dL (8.5-10.1)
[2023-02-04 09:56] LABS: ALBUMIN 3.4 g/dl (3.4-5.0); BLOOD UREA NITROGEN 8.4 mg/dL (7-18)
[2023-02-04 09:59] LABS: CREATININE 0.9 mg/dL (0.55-1.3)
[2023-02-04 10:00] LABS: BILIRUBIN,TOTAL 0.8 mg/dL (0.2-1); TOT PROT 6.1 g/dl (6.4-8.2)
[2023-02-04] MEDS ORDERED: PANTOPRAZOLE SODIUM 40 MG in SODIUM CHLORIDE 100 ML IVPB SCH (10:00)
[2023-02-04] MEDS ORDERED: PANTOPRAZOLE SODIUM 160 MG in SODIUM CHLORIDE 290 ML IVPB SCH (10:00)
[2023-02-04] MEDS ORDERED: FAMOTIDINE 20 MG/50 ML IVPB 20 MG/50 ML MG IVPB SCH (10:00)
[2023-02-04 13:23] VITALS: BP 127/85; PULSE 66; RESP 18; TEMP 99
[2023-02-04] MEDS ORDERED: MELATONIN 5 MG TABLETS PO SCH (22:00)
== END 2023-02-04 15:47 | disposition left against medical advice (07) ==
LOC: JER 19:23 → JERBED 02-04 → J5S 02-04 02:30
PROVIDERS: ADMIT Internal Medicine; ATTEND Family Medicine
PROC: 3E033NZ Introduction of Analgesics, Hypnotics, Sedatives into Peripheral Vein, Percutaneous Approach (ICD-10-PCS; principal; 2023-02-04)
PROC: 3E0333Z Introduction of Anti-inflammatory into Peripheral Vein, Percutaneous Approach (ICD-10-PCS; 2023-02-04)
PROC: 3E0337Z Introduction of Electrolytic and Water Balance Substance into Peripheral Vein, Percutaneous Approach (ICD-10-PCS; 2023-02-04)
DX: K31.84 Gastroparesis (principal); K21.9 Gastro-esophageal reflux disease without esophagitis; J45.909 Unspecified asthma, uncomplicated; R11.10 Vomiting, unspecified; F12.10 Cannabis abuse, uncomplicated; R74.8 Abnormal levels of other serum enzymes; R11.2 Nausea with vomiting, unspecified; Z87.828 Personal history of other (healed) physical injury and trauma
CPT/HCPCS: 36415; 74177-TC; 80053; 80061; 82150; 83690; 83735; 84443; 85025; 86301; 96361; 96365; 96367; 96375; 96376; 99285-25; G0378; Q9967

== ENCOUNTER 2023-03-14 21:51 | Emergency (ER) | payer OTHER ==
[2023-03-14 22:09] VITALS: BMI 23.6
[2023-03-14] MEDS ORDERED: LACTATED RINGERS SOLUTION 1000 ML INFUS.BAG IV ONE (22:10)
[2023-03-14] MEDS ORDERED: ONDANSETRON 4 MG/2 ML VIAL IVPUSH ONE (22:10)
[2023-03-14] MEDS ORDERED: FAMOTIDINE 20 MG/50 ML IVPB 20 MG/50 ML MG IVPB ONE ×2 (22:10→22:15)
[2023-03-14] MEDS ORDERED: MAG HYDROX/AL HYDROX/SIMETH 30 ML UNIT-DOSE CUP PO ONE (22:10)
[2023-03-14] MEDS ORDERED: SUCRALFATE 1 GM/10 ML UNIT DOSE CUPS PO ONE (22:11)
[2023-03-14] MEDS ORDERED: MAG HYDROX/AL HYDROX/SIMETH 30 ML UNIT-DOSE CUP ONE (22:15)
[2023-03-14] MEDS ORDERED: SUCRALFATE 1 GM TABLET (FP) ONE (22:15)
[2023-03-14] MEDS ORDERED: ONDANSETRON 4 MG/2 ML VIAL ONE (22:15)
[2023-03-14 22:17] LABS: BASO % 0.5 % (0-2.0); EOS % 0.1 % (0-4.5); HEMATOCRIT 49.6 % (35.4-49); HEMOGLOBIN 16.3 GM/dL (11.7-16.9); LYMPH % 15.6 % (8-40); MCH 31.9 pg (25.7-33.7); MCHC 32.9 g/dl (32.0-35.9); MEAN CELL VOLUME 97.1 fl (80-96); MEAN PLT VOLUME 8.5 fl (7.5-11.1); MONO % 5.7 % (3.8-10.2); NEUT % 78.1 % (42.8-82.8); PLATELET COUNT 207 10^3/uL (134-434); RBC 5.11 M/mm3 (4.00-5.60); RDW 13.7 % (11.9-15.9); WHITE BLOOD COUNT 5.4 K/mm3 (4.0-10.0)
[2023-03-14 22:50] LABS: POTASSIUM 4.1 mmol/L (3.5-5.1)
[2023-03-14 22:52] LABS: ALBUMIN 4.2 g/dl (3.4-5.0); CALCIUM 9.7 mg/dL (8.5-10.1)
[2023-03-14 22:53] LABS: BLOOD UREA NITROGEN 10.1 mg/dL (7-18)
[2023-03-14 22:55] LABS: CREATININE 1.1 mg/dL (0.55-1.3)
[2023-03-14 22:57] LABS: TOT PROT 7.8 g/dl (6.4-8.2)
[2023-03-14] MEDS ORDERED: ACETAMINOPHEN 1000 MG/100 ML BAG IVPB ONE (23:11)
[2023-03-14] MEDS ORDERED: LORazepam 2 MG/ML SDV VIAL IVPUSH ONE (23:39)
[2023-03-14] MEDS ORDERED: ACETAMINOPHEN INJECTION 100 ML IVPB ONE (23:40)
[2023-03-15 01:46] VITALS: RESP 16
[2023-03-15 04:46] VITALS: BP 106/70; PULSE 74; TEMP 98
== END 2023-03-15 05:12 | disposition home or self-care (01) ==
LOC: JER 21:51
PROC: 3E033GC Introduction of Other Therapeutic Substance into Peripheral Vein, Percutaneous Approach (ICD-10-PCS; principal; 2023-03-14)
PROC: 3E033NZ Introduction of Analgesics, Hypnotics, Sedatives into Peripheral Vein, Percutaneous Approach (ICD-10-PCS; 2023-03-14)
PROC: 3E033GC Introduction of Other Therapeutic Substance into Peripheral Vein, Percutaneous Approach (ICD-10-PCS; 2023-03-14)
PROC: 3E033GC Introduction of Other Therapeutic Substance into Peripheral Vein, Percutaneous Approach (ICD-10-PCS; 2023-03-14)
DX: R10.84 Generalized abdominal pain (principal); R11.2 Nausea with vomiting, unspecified; R12 Heartburn; E86.0 Dehydration
CPT/HCPCS: 36415; 71045-TC-FY; 80053; 83690; 83735; 85025; 93005; 93010; 99285-25

== ENCOUNTER 2023-03-16 18:42 | Emergency (ER) | payer OTHER ==
[2023-03-16 19:01] VITALS: BP 139/108; PULSE 68; RESP 18; TEMP 98.8; BMI 22.8
[2023-03-16] MEDS ORDERED: FAMOTIDINE 20 MG/50 ML IVPB 20 MG/50 ML MG IVPB ONE ×2 (19:59→20:08)
[2023-03-16] MEDS ORDERED: ONDANSETRON 4 MG/2 ML VIAL IVPUSH ONE (19:59)
[2023-03-16] MEDS ORDERED: SODIUM CHLORIDE 0.9% 500 ML INFUS.BAG IV ONE (19:59)
[2023-03-16] MEDS ORDERED: ONDANSETRON 4 MG/2 ML VIAL ONE (20:08)
[2023-03-16] MEDS ORDERED: MAG HYDROX/AL HYDROX/SIMETH 30 ML UNIT-DOSE CUP PO ONE (20:11)
[2023-03-16 20:49] LABS: POTASSIUM 4.8 mmol/L (3.5-5.1)
[2023-03-16 20:50] LABS: BASO % 0.4 % (0-2.0); EOS % 0.7 % (0-4.5); HEMATOCRIT 46.3 % (35.4-49); HEMOGLOBIN 15.7 GM/dL (11.7-16.9); LYMPH % 19.9 % (8-40); MCH 32.2 pg (25.7-33.7); MCHC 33.8 g/dl (32.0-35.9); MEAN CELL VOLUME 95.3 fl (80-96); MEAN PLT VOLUME 9.1 fl (7.5-11.1); MONO % 11.6 % (3.8-10.2); NEUT % 67.4 % (42.8-82.8); PLATELET COUNT 207 10^3/uL (134-434); RBC 4.86 M/mm3 (4.00-5.60); RDW 13.8 % (11.9-15.9); WHITE BLOOD COUNT 4.7 K/mm3 (4.0-10.0)
[2023-03-16 20:51] LABS: ALBUMIN 3.8 g/dl (3.4-5.0); CALCIUM 8.7 mg/dL (8.5-10.1)
[2023-03-16 20:52] LABS: BLOOD UREA NITROGEN 8.6 mg/dL (7-18); MAGNESIUM 2.1 mg/dL (1.8-2.4)
[2023-03-16] MEDS ORDERED: MAG HYDROX/AL HYDROX/SIMETH 30 ML UNIT-DOSE CUP ONE (20:54)
[2023-03-16 20:56] LABS: BILIRUBIN,TOTAL 0.8 mg/dL (0.2-1); TOT PROT 7.3 g/dl (6.4-8.2)
== END 2023-03-16 23:01 | disposition home or self-care (01) ==
LOC: JER 18:42
PROC: 3E033GC Introduction of Other Therapeutic Substance into Peripheral Vein, Percutaneous Approach (ICD-10-PCS; principal; 2023-03-16)
PROC: 3E033GC Introduction of Other Therapeutic Substance into Peripheral Vein, Percutaneous Approach (ICD-10-PCS; 2023-03-16)
DX: R10.13 Epigastric pain (principal); R11.2 Nausea with vomiting, unspecified; R53.1 Weakness; R42 Dizziness and giddiness
CPT/HCPCS: 36415; 71045-TC-FY; 80053; 83690; 83735; 84484; 85025; 93005; 93010; 99285-25

== ENCOUNTER 2023-06-30 14:37 | Emergency (ER) | payer OTHER ==
[2023-06-30 15:20] VITALS: BP 123/71; PULSE 71; RESP 19; TEMP 98.7; BMI 22.1
[2023-06-30] MEDS ORDERED: FAMOTIDINE 20 MG/50 ML IVPB 20 MG/50 ML MG IVPB ONE ×2 (15:26→15:33)
[2023-06-30] MEDS ORDERED: ONDANSETRON 4 MG/2 ML VIAL IVPUSH ONE (15:26)
[2023-06-30] MEDS ORDERED: SODIUM CHLORIDE 0.9% 500 ML INFUS.BAG IV ONE (15:26)
[2023-06-30] MEDS ORDERED: ONDANSETRON 4 MG/2 ML VIAL ONE (15:32)
[2023-06-30] MEDS ORDERED: HALOPERIDOL LACTATE 5 MG/ML IM ONE (15:38)
[2023-06-30] MEDS ORDERED: HALOPERIDOL LACTATE 5 MG/ML ONE (15:38)
[2023-06-30] MEDS ORDERED: MAG HYDROX/AL HYDROX/SIMETH -MYLANTA- ORAL SUSPENSION PO ONE (15:38)
[2023-06-30] MEDS ORDERED: MAG HYDROX/AL HYDROX/SIMETH 30 ML UNIT-DOSE CUP ONE (15:39)
== END 2023-06-30 16:55 | disposition home or self-care (01) ==
LOC: JER 14:37
PROC: 3E023GC Introduction of Other Therapeutic Substance into Muscle, Percutaneous Approach (ICD-10-PCS; principal; 2023-06-30)
DX: R10.84 Generalized abdominal pain (principal); R11.2 Nausea with vomiting, unspecified; F12.288 Cannabis dependence with other cannabis-induced disorder
CPT/HCPCS: 99284-25

== ENCOUNTER 2023-12-06 12:12 | Observation (INO) | payer OTHER ==
[2023-12-06] MEDS ORDERED: FAMOTIDINE 20 MG/50 ML IVPB 20 MG/50 ML MG IVPB ONE (13:18)
[2023-12-06] MEDS ORDERED: ONDANSETRON 4 MG/2 ML VIAL ONE (13:18)
[2023-12-06] MEDS ORDERED: ACETAMINOPHEN INJECTION 100 ML IVPB ONE (13:18)
[2023-12-06] MEDS ORDERED: MAG HYDROX/AL HYDROX/SIMETH 30 ML UNIT-DOSE CUP ONE (13:18)
[2023-12-06] MEDS: MAG HYDROX/AL HYDROX/SIMETH -MYLANTA- ORAL SUSPENSION PO ONE (13:28)
[2023-12-06] MEDS: FAMOTIDINE 20 MG/50 ML IVPB 20 MG/50 ML MG IVPB ONE (13:28)
[2023-12-06] MEDS: ACETAMINOPHEN 1000 MG/100 ML BAG IVPB ONE (13:29)
[2023-12-06] MEDS: ONDANSETRON 4 MG/2 ML VIAL IVPUSH ONE (13:29)
[2023-12-06] MEDS: SODIUM CHLORIDE 0.9% 500 ML INFUS.BAG IV ONE (13:29)
[2023-12-06 13:55] LABS: BASO % 0.4 % (0-2.0); EOS % 1.6 % (0-4.5); HEMATOCRIT 46.6 % (35.4-49); HEMOGLOBIN 15.4 GM/dL (11.7-16.9); LYMPH % 25.6 % (8-40); MCH 32.1 pg (25.7-33.7); MEAN CELL VOLUME 97.4 fl (80-96); MEAN PLT VOLUME 8.8 fl (7.5-11.1); MONO % 8.1 % (3.8-10.2); NEUT % 64.3 % (42.8-82.8); PLATELET COUNT 219 10^3/uL (134-434); RBC 4.78 M/mm3 (4.00-5.60); RDW 13.5 % (11.9-15.9); WHITE BLOOD COUNT 7.7 K/mm3 (4.0-10.0)
[2023-12-06 14:00] LABS: INR 1.07 (0.83-1.09); PROTHROMBIN TIME (PATIENT) 12.4 SEC (9.7-13.0)
[2023-12-06] MEDS ORDERED: HALOPERIDOL LACTATE 5 MG/ML ONE (14:00)
[2023-12-06 14:03] LABS: ACTIVATED PTT 32.9 SECONDS (25.2-36.5)
[2023-12-06 14:12] LABS: CALCIUM 9.7 mg/dL (8.5-10.1)
[2023-12-06 14:13] LABS: ALBUMIN 4.2 g/dl (3.4-5.0); BLOOD UREA NITROGEN 15.9 mg/dL (7-18); MAGNESIUM 2.4 mg/dL (1.8-2.4)
[2023-12-06 14:17] LABS: BILIRUBIN,TOTAL 0.8 mg/dL (0.2-1); TOT PROT 7.8 g/dl (6.4-8.2)
[2023-12-06] MEDS: HALOPERIDOL LACTATE 5 MG/ML IM ONE (14:25)
[2023-12-06 14:28] LABS: POTASSIUM 3.8 mmol/L (3.5-5.1)
[2023-12-06] MEDS ORDERED: METOCLOPRAMIDE HCL INJECTION 10 MG/2 ML VIAL ONE (19:45)
[2023-12-06] MEDS: METOCLOPRAMIDE HCL INJECTION 10 MG/2 ML VIAL IVPB ONE (19:55)
[2023-12-06] MEDS ORDERED: DOCUSATE SODIUM 100 MG CAPSULE (FP) PO PRN (20:29)
[2023-12-06] MEDS ORDERED: METOCLOPRAMIDE HCL INJECTION 10 MG/2 ML VIAL IVPUSH PRN (20:29)
[2023-12-06] MEDS: DEXTROSE 5%-0.45% SALINE 1,000 ML IV SCH (20:45)
[2023-12-06] MEDS: ACETAMINOPHEN 1000 MG/100 ML BAG IVPB PRN (20:52)
[2023-12-07] MEDS ORDERED: MAG HYDROX/AL HYDROX/SIMETH -MYLANTA- ORAL SUSPENSION PO ONE (01:47)
[2023-12-07] MEDS: MAG HYDROX/AL HYDROX/SIMETH 30 ML UNIT-DOSE CUP PO ONE (02:03)
[2023-12-07 09:25] LABS: BASO % 0.5 % (0-2.0); EOS % 1.9 % (0-4.5); HEMATOCRIT 39.5 % (35.4-49); HEMOGLOBIN 13.4 GM/dL (11.7-16.9); LYMPH % 40.7 % (8-40); MCH 33.1 pg (25.7-33.7); MEAN CELL VOLUME 97.4 fl (80-96); MEAN PLT VOLUME 8.3 fl (7.5-11.1); NEUT % 45.9 % (42.8-82.8); PLATELET COUNT 176 10^3/uL (134-434); RBC 4.05 M/mm3 (4.00-5.60); RDW 13.4 % (11.9-15.9)
[2023-12-07 09:37] LABS: POTASSIUM 3.6 mmol/L (3.5-5.1)
[2023-12-07 09:42] LABS: BLOOD UREA NITROGEN 11.5 mg/dL (7-18)
[2023-12-07 09:45] LABS: CALCIUM 8.2 mg/dL (8.5-10.1); CREATININE 1.1 mg/dL (0.55-1.3)
[2023-12-07] MEDS: DEXTROSE 5%-0.45% SALINE 1,000 ML IV SCH (11:40)
[2023-12-07 12:28] VITALS: BP 136/73; PULSE 100; RESP 19; TEMP 97.8
[2023-12-07] MEDS ORDERED: ACETAMINOPHEN 325 MG TABLET (FP) PO PRN (20:30)
== END 2023-12-07 15:29 | disposition left against medical advice (07) ==
LOC: JER 12:12 → JERBED 19:27 → J5S 20:26
PROVIDERS: ADMIT Internal Medicine; ATTEND Internal Medicine
PROC: 3E033NZ Introduction of Analgesics, Hypnotics, Sedatives into Peripheral Vein, Percutaneous Approach (ICD-10-PCS; principal; 2023-12-06)
PROC: 3E0337Z Introduction of Electrolytic and Water Balance Substance into Peripheral Vein, Percutaneous Approach (ICD-10-PCS; 2023-12-06)
PROC: 3E033GC Introduction of Other Therapeutic Substance into Peripheral Vein, Percutaneous Approach (ICD-10-PCS; 2023-12-06)
DX: F12.988 Cannabis use, unspecified with other cannabis-induced disorder (principal); J45.909 Unspecified asthma, uncomplicated; K31.84 Gastroparesis; F12.90 Cannabis use, unspecified, uncomplicated; R11.2 Nausea with vomiting, unspecified; Z87.828 Personal history of other (healed) physical injury and trauma; Z88.8 Allergy status to other drugs, medicaments and biological substances
CPT/HCPCS: 36415; 80048; 80053; 83605; 83690; 83735; 85025; 85610; 85730; 93005; 93010; 96361; 96365; 96375; 96376; 99285-25; G0378; J0131

== ENCOUNTER 2024-05-17 18:19 | Emergency (ER) | payer OTHER ==
[2024-05-17 18:36] VITALS: BP 112/75; PULSE 70; RESP 17; TEMP 98.1; BMI 22.8
[2024-05-17] MEDS ORDERED: HALOPERIDOL LACTATE 5 MG/ML ONE (19:37)
[2024-05-17] MEDS: HALOPERIDOL LACTATE 5 MG/ML IM ONE (19:43)
[2024-05-17] MEDS ORDERED: FAMOTIDINE 20 MG TABLET ONE (20:08)
[2024-05-17] MEDS ORDERED: MAG HYDROX/AL HYDROX/SIMETH 30 ML UNIT-DOSE CUP ONE (20:09)
[2024-05-17] MEDS: MAG HYDROX/AL HYDROX/SIMETH 30 ML UNIT-DOSE CUP PO ONE (20:11)
[2024-05-17] MEDS: FAMOTIDINE 20 MG TABLET PO ONE (20:11)
[2024-05-17 20:21] LABS: BASO % 0.4 % (0-2.0); EOS % 0.3 % (0-4.5); HEMATOCRIT 49.1 % (35.4-49); HEMOGLOBIN 15.9 GM/dL (11.7-16.9); LYMPH % 14.5 % (8-40); MCHC 32.4 g/dl (32.0-35.9); MEAN CELL VOLUME 98.8 fl (80-96); MEAN PLT VOLUME 8.7 fl (7.5-11.1); MONO % 7.7 % (3.8-10.2); NEUT % 77.1 % (42.8-82.8); PLATELET COUNT 216 10^3/uL (134-434); RBC 4.97 M/mm3 (4.00-5.60); RDW 13.4 % (11.9-15.9); WHITE BLOOD COUNT 8.5 K/mm3 (4.0-10.0)
[2024-05-17 20:53] LABS: POTASSIUM 3.9 mmol/L (3.5-5.1)
[2024-05-17 20:55] LABS: CALCIUM 10.4 mg/dL (8.5-10.1)
[2024-05-17 20:56] LABS: ALBUMIN 4.5 g/dl (3.4-5.0); BLOOD UREA NITROGEN 10.5 mg/dL (7-18)
[2024-05-17 21:00] LABS: BILIRUBIN,TOTAL 0.9 mg/dL (0.2-1); TOT PROT 7.9 g/dl (6.4-8.2)
[2024-05-17] MEDS ORDERED: SUCRALFATE 1 GM TABLET (FP) ONE ×2 (21:20→21:21)
[2024-05-17] MEDS: SUCRALFATE 1 GM TABLET (FP) PO ONE (21:30)
== END 2024-05-17 22:46 | disposition home or self-care (01) ==
LOC: JER 18:19
PROC: 3E023GC Introduction of Other Therapeutic Substance into Muscle, Percutaneous Approach (ICD-10-PCS; principal; 2024-05-17)
DX: R10.13 Epigastric pain (principal); R11.2 Nausea with vomiting, unspecified
CPT/HCPCS: 36415; 80053; 83690; 85025; 99284-25

== ENCOUNTER 2024-06-29 07:52 | Observation (INO) | payer OTHER ==
[2024-06-29 08:05] VITALS: BP 148/99; PULSE 96; RESP 18; TEMP 97.7; BMI 20.7
[2024-06-29] MEDS ORDERED: ACETAMINOPHEN INJECTION 100 ML ONE (08:58)
[2024-06-29] MEDS ORDERED: FAMOTIDINE 20 MG/50 ML IVPB 20 MG/50 ML MG IVPB ONE (08:58)
[2024-06-29] MEDS ORDERED: ONDANSETRON 4 MG/2 ML VIAL ONE (08:58)
[2024-06-29 09:04] LABS: BASO % 0.7 % (0-2.0); EOS % 4.1 % (0-4.5); HEMOGLOBIN 15.1 GM/dL (11.7-16.9); LYMPH % 43.1 % (8-40); MCH 33.1 pg (25.7-33.7); MCHC 34.2 g/dl (32.0-35.9); MEAN CELL VOLUME 96.8 fl (80-96); MEAN PLT VOLUME 8.5 fl (7.5-11.1); MONO % 10.7 % (3.8-10.2); NEUT % 41.4 % (42.8-82.8); PLATELET COUNT 214 10^3/uL (134-434); RBC 4.55 M/mm3 (4.00-5.60); RDW 13.4 % (11.9-15.9); WHITE BLOOD COUNT 4.7 K/mm3 (4.0-10.0)
[2024-06-29] MEDS: ONDANSETRON 4 MG/2 ML VIAL IVPUSH ONE (09:05)
[2024-06-29] MEDS: ACETAMINOPHEN 1000 MG/100 ML BAG IVPB ONE (09:05)
[2024-06-29 09:12] LABS: POTASSIUM 5.2 mmol/L (3.5-5.1)
[2024-06-29 09:15] LABS: ALBUMIN 3.9 g/dl (3.4-5.0); CALCIUM 9.2 mg/dL (8.5-10.1)
[2024-06-29 09:18] LABS: CREATININE 1.1 mg/dL (0.55-1.3)
[2024-06-29 09:19] LABS: BILIRUBIN,TOTAL 0.7 mg/dL (0.2-1)
[2024-06-29 09:20] LABS: TOT PROT 7.4 g/dl (6.4-8.2)
[2024-06-29] MEDS: FAMOTIDINE 20 MG/50 ML IVPB 20 MG/50 ML MG IVPB ONE (09:34)
[2024-06-29] MEDS ORDERED: morphine SULFATE 4 MG/ML VIAL ONE (10:34)
[2024-06-29] MEDS ORDERED: METOCLOPRAMIDE HCL INJECTION 10 MG/2 ML VIAL ONE (10:34)
[2024-06-29] MEDS: morphine CARPU-JECT 4 MG/1 ML DISP.SYRIN IVPUSH ONE (10:52)
[2024-06-29] MEDS: METOCLOPRAMIDE HCL INJECTION 10 MG/2 ML VIAL IVPB ONE (10:52)
[2024-06-29] MEDS: SODIUM CHLORIDE 0.9% 500 ML INFUS.BAG IV ONE (10:52)
== END 2024-06-29 13:25 | disposition left against medical advice (07) ==
LOC: JER 07:52 → JERBED 11:43
PROVIDERS: ADMIT Internal Medicine; ATTEND Internal Medicine
PROC: 3E033GC Introduction of Other Therapeutic Substance into Peripheral Vein, Percutaneous Approach (ICD-10-PCS; principal; 2024-06-29)
PROC: 3E033NZ Introduction of Analgesics, Hypnotics, Sedatives into Peripheral Vein, Percutaneous Approach (ICD-10-PCS; 2024-06-29)
PROC: 3E0337Z Introduction of Electrolytic and Water Balance Substance into Peripheral Vein, Percutaneous Approach (ICD-10-PCS; 2024-06-29)
DX: R10.13 Epigastric pain (principal); F12.90 Cannabis use, unspecified, uncomplicated; R79.89 Other specified abnormal findings of blood chemistry; J45.909 Unspecified asthma, uncomplicated; K21.9 Gastro-esophageal reflux disease without esophagitis; K31.84 Gastroparesis; F17.210 Nicotine dependence, cigarettes, uncomplicated
CPT/HCPCS: 36415; 74177-TC; 80053; 83690; 85025; 96365; 96375; 99285-25; G0378; J0131

== ENCOUNTER 2024-09-04 19:32 | Observation (INO) | payer OTHER ==
[2024-09-04 19:58] VITALS: BMI 21.9
[2024-09-04] MEDS ORDERED: FAMOTIDINE 20 MG/50 ML IVPB 20 MG/50 ML MG IVPB ONE (20:44)
[2024-09-04] MEDS: SODIUM CHLORIDE 1,000 ML IV STA ×2 (20:45→22:36)
[2024-09-04] MEDS: FAMOTIDINE 20 MG/50 ML IVPB 20 MG/50 ML MG IVPB ONE (20:45)
[2024-09-04] MEDS: HALOPERIDOL LACTATE 5 MG/ML IVPUSH ONE (21:02)
[2024-09-04] MEDS ORDERED: ACETAMINOPHEN INJECTION 100 ML ONE (21:02)
[2024-09-04] MEDS: ACETAMINOPHEN 1000 MG/100 ML BAG IVPB ONE (21:02)
[2024-09-04 21:11] LABS: BASO % 0.3 % (0-2.0); EOS % 1.2 % (0-4.5); HEMATOCRIT 55.3 % (35.4-49); HEMOGLOBIN 18.7 GM/dL (11.7-16.9); LYMPH % 27.3 % (8-40); MCH 32.7 pg (25.7-33.7); MCHC 33.9 g/dl (32.0-35.9); MEAN CELL VOLUME 96.6 fl (80-96); MEAN PLT VOLUME 8.2 fl (7.5-11.1); MONO % 12.5 % (3.8-10.2); NEUT % 58.7 % (42.8-82.8); PLATELET COUNT 291 10^3/uL (134-434); RBC 5.72 M/mm3 (4.00-5.60); RDW 13.4 % (11.9-15.9); WHITE BLOOD COUNT 6.8 K/mm3 (4.0-10.0)
[2024-09-04 21:44] LABS: CHLORIDE 100 mmol/L (98-107); SODIUM 134 mmol/L (136-145)
[2024-09-04 21:46] LABS: ALBUMIN 5.3 g/dl (3.4-5.0); CALCIUM 11.6 mg/dL (8.5-10.1); CO2 25 mmol/L (21-32)
[2024-09-04 21:47] LABS: BLOOD UREA NITROGEN 17.3 mg/dL (7-18); GLUCOSE,RANDOM 90 mg/dL (74-106); MAGNESIUM 2.6 mg/dL (1.8-2.4)
[2024-09-04 21:50] LABS: CREATININE 2.3 mg/dL (0.55-1.3); SGOT/AST 51 U/L (15-37); SGPT/ALT 29 U/L (13-61)
[2024-09-04 21:52] LABS: ALK PHOS 87 U/L (45-117)
[2024-09-04 21:54] LABS: ANION GAP 9 mmol/L (4-13); POTASSIUM 6.2 mmol/L (3.5-5.1)
[2024-09-04 23:04] LABS: POTASSIUM 3.6 mmol/L (3.5-5.1)
[2024-09-04 23:06] LABS: BLOOD UREA NITROGEN 18.1 mg/dL (7-18); CALCIUM 9.9 mg/dL (8.5-10.1)
[2024-09-04 23:10] LABS: CREATININE 1.7 mg/dL (0.55-1.3)
[2024-09-05 00:34] LABS: POTASSIUM 4.3 mmol/L (3.5-5.1)
[2024-09-05 00:36] LABS: BLOOD UREA NITROGEN 16.8 mg/dL (7-18); CALCIUM 8.9 mg/dL (8.5-10.1)
[2024-09-05 00:40] LABS: CREATININE 1.7 mg/dL (0.55-1.3)
[2024-09-05 01:38] LABS: EPI CELLS >36 /uL (0-25.1); HYALINE CASTS 19 /uL (0-3.1); URINE APPEARANCE CLOUDY; URINE BACTERIA 26 /uL (0-1359); URINE BILIRUBIN NEGATIVE (NEGATIVE); URINE COLOR YELLOW; URINE GLUCOSE (UA) NEGATIVE (NEGATIVE); URINE KETONE TRACE (NEGATIVE); URINE LEUK ESTERASE NEGATIVE (NEGATIVE); URINE NITRITE NEGATIVE (NEGATIVE); URINE PROTEIN 1+ (NEGATIVE); URINE RBC 13 /uL (0-23.9); URINE UROBILINOGEN 0.2 mg/dL (0.2-1.0); URINE WBC 55 /uL (0-25.8)
[2024-09-05] MEDS: SODIUM CHLORIDE 1,000 ML IV SCH (03:06)
[2024-09-05 03:47] VITALS: TEMP 98.5
[2024-09-05] MEDS: ONDANSETRON 4 MG/2 ML VIAL IVPUSH PRN (04:09)
[2024-09-05 05:15] VITALS: RESP 16
[2024-09-05 08:42] VITALS: BP 116/82; PULSE 66
[2024-09-05 08:52] LABS: BASO % 0.4 % (0-2.0); EOS % 1.9 % (0-4.5); HEMATOCRIT 42.2 % (35.4-49); HEMOGLOBIN 13.9 GM/dL (11.7-16.9); MCH 32.3 pg (25.7-33.7); MCHC 32.9 g/dl (32.0-35.9); MEAN CELL VOLUME 98.1 fl (80-96); MEAN PLT VOLUME 8.3 fl (7.5-11.1); MONO % 10.7 % (3.8-10.2); PLATELET COUNT 237 10^3/uL (134-434); RDW 13.3 % (11.9-15.9); WHITE BLOOD COUNT 6.4 K/mm3 (4.0-10.0)
[2024-09-05 09:10] LABS: POTASSIUM 3.4 mmol/L (3.5-5.1)
[2024-09-05 09:12] LABS: BLOOD UREA NITROGEN 16.8 mg/dL (7-18); CALCIUM 8.8 mg/dL (8.5-10.1); MAGNESIUM 1.9 mg/dL (1.8-2.4)
[2024-09-05 09:16] LABS: CREATININE 1.2 mg/dL (0.55-1.3)
== END 2024-09-05 17:23 | disposition left against medical advice (07) ==
LOC: JER 19:32 → JERBED 23:07 → J6S 09-05 04:23
PROVIDERS: ADMIT Internal Medicine; ATTEND Internal Medicine
PROC: 3E033NZ Introduction of Analgesics, Hypnotics, Sedatives into Peripheral Vein, Percutaneous Approach (ICD-10-PCS; principal; 2024-09-04)
PROC: 3E033GC Introduction of Other Therapeutic Substance into Peripheral Vein, Percutaneous Approach (ICD-10-PCS; 2024-09-04)
PROC: 3E0337Z Introduction of Electrolytic and Water Balance Substance into Peripheral Vein, Percutaneous Approach (ICD-10-PCS; 2024-09-04)
DX: R11.15 Cyclical vomiting syndrome unrelated to migraine (principal); J45.909 Unspecified asthma, uncomplicated; R11.2 Nausea with vomiting, unspecified; F12.90 Cannabis use, unspecified, uncomplicated; N17.9 Acute kidney failure, unspecified
CPT/HCPCS: 36415; 80048; 80053; 81003; 83735; 85025; 87086; 96361; 96365; 96375; 99285-25; G0378; J0131

== ENCOUNTER 2025-05-26 16:42 | Emergency (ER) | payer OTHER ==
[2025-05-26 16:51] VITALS: BP 126/80; PULSE 98; RESP 17; TEMP 98; BMI 22.7
[2025-05-26] MEDS ORDERED: HALOPERIDOL LACTATE 5 MG/ML ONE (17:54)
[2025-05-26] MEDS: HALOPERIDOL LACTATE 5 MG/ML IM ONE (17:58)
[2025-05-26] MEDS ORDERED: MAG HYDROX/AL HYDROX/SIMETH 30 ML UNIT-DOSE CUP PO ONE (19:47)
[2025-05-26] MEDS ORDERED: SODIUM CHLORIDE 0.9% 500 ML INFUS.BAG IV ONE (19:47)
[2025-05-26] MEDS ORDERED: FAMOTIDINE 20 MG/50 ML IVPB 20 MG/50 ML MG IVPB ONE (19:47)
[2025-05-26] MEDS ORDERED: ONDANSETRON 4 MG/2 ML VIAL IVPUSH ONE (19:47)
== END 2025-05-26 20:05 | disposition left against medical advice (07) ==
LOC: JER 16:42
PROC: 3E023GC Introduction of Other Therapeutic Substance into Muscle, Percutaneous Approach (ICD-10-PCS; principal; 2025-05-26)
DX: R11.2 Nausea with vomiting, unspecified (principal)
CPT/HCPCS: 71045-TC-FY; 93005; 93010; 96372; 99284-25